=== PATIENT | male | born 1975 | race Caucasian/White ===

== ENCOUNTER 2019-05-19 08:39 | Outpatient (CLI) | payer OTHER, SELFPAY ==
--- NOTE | ~2019-05-19 | US_ITS ---
US abdomen complete EXAMINATION: US Abdomen Complete INDICATION: Epigastric pain PROCEDURE: Realtime High Resolution abdomen ultrasound. COMPARISON: No prior studies for comparison FINDINGS: Gallbladder within normal limits. No gallstones, pericholecystic fluid, gallbladder wall t hickening or biliary dilatation. Common bile duct measures 3 mm. There is a hyperechoic area adjacent to the courtney hepatis measuring 2.5 x 2.5 x 1.3 cm. Pancreas with in normal limits. Pancreatic tail is obscured by bowel gas. Spleen is unremarkeable. Renal echotext ure is within normal limits bilaterally without hydronephrosis, contour deforming mass or renal stone . Right kidney measures 11.8 cm. Left kidney measures 11.9 cm. Visualized aspects of the aorta and IVC are within normal limits. Portal vein is patent. No sonograph ic Anna's sign indicated by the technologist. IMPRESSION: 1: Hyperechoic liver parenchyma adjacent to the courtney hepatis measuring up to 2.5 cm. This most likel y represents focal fatty infiltration or hemangioma in the absence of known malignancy. Reviewed, dictated and finalized at location A. IMPRESSION: 1: Hyperechoic liver parenchyma adjacent to the courtney hepatis measuring up to 2 .5 cm. This most likely represents focal fatty infiltration or hemangioma in th e absence of known malignancy.
== END 2019-05-19 08:40 | disposition home or self-care (01) ==
LOC: CHSIMG 08:42
PROVIDERS: PCP Family Medicine; Visit Provider Family Medicine
DX: R10.13 Epigastric pain (principal)
CPT/HCPCS: 76700

== ENCOUNTER 2019-05-20 07:31 | Outpatient (CLI) | payer OTHER, SELFPAY ==
--- NOTE | ~2019-05-20 | CT_ITS ---
EXAMINATION: CT abdomen pelvis w con DATE: 05/20/2019 08:24 INDICATION: Epigastric pain TECHNIQUE: Computed tomography (CT) of the abdomen and pelvis was performed without intravenous contr ast. Automated exposure control and iterative reconstruction technique were employed. The dose-length product was 1383.78 mGy-cm. COMPARISON: Ultrasound dated 05/19/2019 FINDINGS: Lung bases are clear. Heart size is normal. No pericardial or pleural effusion. Focal hepatic steatos is along the ligamentum teres and courtney hepatis. Gallbladder, spleen, bilateral adrenal glands and ki dneys are normal. There is subtle peripancreatic stranding consistent with acute interstitial pancrea titis. Homogeneous pancreatic parenchymal enhancement with no evident necrosis, hemorrhage or loculat ed peripancreatic fluid collections. A few mildly prominent but still normal-sized peripancreatic and mesenteric lymph nodes which are likely reactive. Calcified appendicolith within the base of the oth erwise normal appendix with no periappendiceal inflammatory stranding to suggest acute appendicitis. Fatty infiltration of the wall of the proximal colon which is likely related to body habitus. No bc l obstruction. Bladder is normal. No free intraperitoneal gas or fluid. No pathologically enlarged ab dominal or pelvic lymphadenopathy. Vasculature appears unremarkable with patent portal, splenic and s uperior mesenteric veins. Mild polyarticular osteoarthritis at multiple lower lumbar predominant face t joints and bilateral hip and sacroiliac joints. IMPRESSION: 1. Radiographically uncomplicated acute interstitial pancreatitis. 2. Likely reactive mild peripancreatic mesenteric lymphadenopathy. 3. Appendicolith within an otherwise normal appendix. Reviewed, dictated and finalized at location A.
[2019-05-20 07:52] LABS: Estimated Glomerular Filt Rate > 60
== END 2019-05-20 07:32 | disposition home or self-care (01) ==
PROVIDERS: PCP Family Medicine; Visit Provider Family Medicine
DX: R10.13 Epigastric pain (principal)
CPT/HCPCS: 74177; Q9965

== ENCOUNTER 2021-11-22 11:06 | Outpatient (CLI) | payer OTHER, SELFPAY ==
--- NOTE | ~2021-11-22 | XR_ITS ---
EXAMINATION: XR chest 2V DATE: 11/22/2021 11:23 INDICATION: Pneumonia. Shortness of breath. TECHNIQUE: Frontal and lateral views of the chest were obtained. COMPARISON: CT abdomen and pelvis 05/20/2019 FINDINGS: There are Alex B-lines, consistent with mild pulmonary edema. No pleural effusion or pneu mothorax. The heart size is normal. IMPRESSION: 1. Mild pulmonary edema. Reviewed, dictated and finalized at location A. IMPRESSION: 1. Mild pulmonary edema.
== END 2021-11-22 11:07 | disposition home or self-care (01) ==
LOC: CHSIMG 11:09
PROVIDERS: PCP Family Medicine; Visit Provider Family Medicine
DX: J18.9 Pneumonia, unspecified organism (principal)
CPT/HCPCS: 71046

== ENCOUNTER 2021-11-24 14:18 | Outpatient (CLI) | payer OTHER, SELFPAY ==
--- NOTE | 2021-11-24 | ECHO_ITS ---
Patient Info Name: Anoop Francis Age: 46 years : 1975 Gender: Male Ht: 72 in Wt: 247 lbs BSA: 2.42 m2 HR: 101 bpm BP: 107 / 86 mmHg Technical Quality: Good Exam Date: 11/24/2021 2:54 PM Exam Location: [facility] Patient Status: Outpatient Admit Date: 11/24/2021 Staff Ordering Physician: Harry Solorzano MD [employer] Out Worker: Humera Lieberman RDCS Attending Provider: Harry Solorzano MD Referring Physician: Rashad GE; Exam Type: CA echo doppler color flow Study Info Indications R94.31 - Abnormal electrocardiogram ECG EKG R00.0 - Tachycardia, unspecified Complete two-dimensional, color flow and Doppler transthoracic echocardiogram is performed. Summary 1. Complete two-dimensional, color flow and Doppler transthoracic echocardiogram is performed. 2. Left ventricular chamber dimension is severely enlarged. 3. Left ventricular systolic function is severely reduced, estimated at 15-20%. 4. The left ventricular diastolic function is abnormal. 5. E/e' 30 is significantly elevated. 6. Right ventricular chamber dimension is mildly enlarged. 7. Right ventricular systolic function is mildly reduced and with abnormal TAPSE 1.5 cm. 8. Left atrial chamber dimension is severely enlarged. 9. Right atrial chamber dimension is moderately enlarged. 10. There is moderate mitral valve regurgitation. 11. There is mild tricuspid valve regurgitation. 12. No pulmonary hypertension, estimated pulmonary arterial systolic pressure is 35 mmHg. 13. Dilated inferior vena cava with >50% collapse upon inspiration consistent with elevated right atrial pressure, 10 mmHg. Left Ventricle E/e' 30 is significantly elevated. Left ventricular chamber dimension is severely enlarged. Left ventricular systolic function is severely reduced, estimated at 15-20%. The left ventricular diastolic function is abnormal. Right Ventricle Right ventricular systolic function is mildly reduced and with abnormal TAPSE 1.5 cm. Right ventricular chamber dimension is mildly enlarged. Left Atria Left atrial chamber dimension is severely enlarged. Right Atria Right atrial chamber dimension is moderately enlarged. Aortic Valve The aortic valve is trileaflet. There is no aortic valve stenosis. There is no aortic valve regurgitation. Pulmonic Valve There is no pulmonic regurgitation. Mitral Valve There is no mitral valve stenosis. There is moderate mitral valve regurgitation. Tricuspid Valve There is mild tricuspid valve regurgitation. No pulmonary hypertension, estimated pulmonary arterial systolic pressure is 35 mmHg. Pericardium/Pleural There is no pericardial effusion. Inferior Vena Cava Dilated inferior vena cava with >50% collapse upon inspiration consistent with elevated right atrial pressure, 10 mmHg. Aorta The aortic root size at the sinus of Valsalva is normal. Left Ventricular Outflow Tract Name Value Normal LVOT 2D LVOT Diameter 2.3 cm LVOT Doppler LVOT Peak Gradient 2 mmHg LVOT Mean Gradient 1 mmHg LVOT VTI
== END 2021-11-24 14:19 | disposition home or self-care (01) ==
PROVIDERS: PCP Family Medicine; Visit Provider Family Medicine
DX: R00.0 Tachycardia, unspecified (principal); R94.31 Abnormal electrocardiogram [ECG] [EKG]; I08.1 Rheumatic disorders of both mitral and tricuspid valves
CPT/HCPCS: 93306

== ENCOUNTER 2021-11-24 17:20 | Observation (INO) | payer OTHER, SELFPAY ==
[2021-11-24] VITALS (18 sets, daily range): BP systolic 121–141; BP diastolic 69–96; PULSE 95–113; RESP 13–28; TEMP 36.4–36.6; O2SAT 97–100; BMI 34.2
--- NOTE | ~2021-11-24 | XR_ITS ---
EXAMINATION: XR chest 2V DATE: 11/24/2021 17:46 INDICATION: Chest pain TECHNIQUE: PA and lateral views of the chest are obtained. COMPARISON: 11/22/2021 FINDINGS: There is persistent but improved mild pulmonary edema. No pleural effusion or pneumothorax. The cardiomediastinal silhouette is normal. The visualized bones and soft tissues are unremarkable. IMPRESSION: 1. Persistent but improved mild pulmonary edema. Reviewed, dictated and finalized at location A.
--- NOTE | 2021-11-24 17:24 | ECG_ITS ---
Measurements Intervals [place] Rate: 102 P: 63 VT: 202 QRS: -41 QRSD: 129 T: 86 QT: 353 QTc: 461 Interpretive Statements SINUS TACHYCARDIA LEFT AXIS DEVIATION BORDERLINE AV CONDUCTION DELAY POSSIBLE RIGHT ATRIAL ENLARGEMENT POSSIBLE LEFT ATRIAL ENLARGEMENT INTRAVENTRICULAR CONDUCTION DELAY DELAYED PRECORDIAL R/S TRANSITION BORDERLINE T WAVE ABNORMALITY- HIGH LATERAL LEADS BORDERLINE ECG NO PREVIOUS ECG AVAILABLE FOR COMPARISON Electronically Signed On 11-24-2021 21:40:27 CDT by Neeraj Beltran D.O.
[2021-11-24 17:56] LABS: INR 1.2; Prothrombin Time 14.9 Seconds (11.1-14.7)
[2021-11-24 18:00] LABS: Alanine Aminotransferase 76 U/L (6-50); Albumin Level 4.2 g/dL (3.5-5.1); Alkaline Phosphatase 75 U/L (38-126); Anion Gap 14 mmol/L (8-16); Aspartate Amino Transferase 50 U/L (17-59); Bilirubin,Total 0.5 mg/dL (0.2-1.3); Blood Urea Nitrogen 15 mg/dL (9-20); Calcium 8.6 mg/dL (8.4-10.2); Carbon Dioxide 23 mmol/L (22-30); Chloride 102 mmol/L (98-107); Estimated Glomerular Filt Rate > 60; Glucose 242 mg/dL (65-110); Lipase 181 U/L (23-300); Potassium 3.6 mmol/L (3.4-5.0); Sodium 139 mmol/L (137-145)
[2021-11-24 18:09] LABS: Troponin I < 0.012 ng/mL (0.000-0.034)
[2021-11-24 18:10] LABS: Basophils Absolute Auto 0.1 K/mm3 (0.0-0.1); Basophils Percent Auto 0.7 % (0.2-1.2); Eosinophils Absolute Auto 0.3 K/mm3 (0-0.3); Eosinophils Percent Auto 2.3 % (0-4.4); Hematocrit 41.5 % (42.0-52.0); Hemoglobin 12.6 g/dL (14.0-18.0); Immature Granulocyte Absolute 0.04 K/mm3 (0.00-0.031); Immature Granulocyte Percent A 0.4 % (0-0.5); Lymphocytes Absolute Auto 1.82 K/mm3 (0.9-3.2); Lymphocytes Percent Auto 16.9 % (18.3-44.2); Mean Corpuscular HGB Conc 30.4 g/dl (32-36); Mean Corpuscular Hemoglobin 25.7 pg (26-34); Mean Corpuscular Volume 84.7 fl (80-100); Mean Platelet Volume 12.8 fl (7.4-10.4); Monocytes Absolute Auto 0.4 K/mm3 (0.1-0.6); Monocytes Percent Auto 3.4 % (2.6-8.5); Neutrophils Absolute Auto 8.2 K/mm3 (1.3-6.7); Neutrophils Percent Auto 76.3 % (45.5-73.1); Platelet Count Result 243 k/mm3 (150-375); Red Cell Distribution Width 14.4 % (11.5-14.5); White Blood Count 10.7 K/mm3 (4.5-10.0)
[2021-11-24 19:43] LABS: NT Pro B Type Natriuretic Pept 1870 pg/mL (5-100)
--- NOTE | 2021-11-24 20:04 | ED.GENADULT ---
HPI - General Adult General Chief complaint: Chest Pain Stated complaint: abnormal echo Time Seen by Provider: 11/24/21 18:57 Source: patient and RN notes reviewed Mode of arrival: ambulatory Limitations: no limitations History of Present Illness HPI narrative: This is a 46 year old male who presents for evaluation of an abnormal ECHO. He developed dyspnea on exertion on October 27. He went for evaluation and he was diagnosed with pneumonia at that time. He states 2 weeks after that evaluation he continued to have shortness of breath. He was told he had more fluid on his lungs on that xray was he had outpatient ECHO and EKG ordered. He has been on lasix 20 mg daily for 3 days. His ECHO today showed he had EF of 15-20%, so he was told to come to ER. He denies cardiac history. He denies chest pain with these symptoms. He denies URI preceding his shortness of breath. Related Data Home Medications Medication Instructions Recorded Confirmed furosemide 20 mg tablet 20 mg PO DAILY 11/24/21 11/24/21 lipase 16,800-protease 2 cap PO 11/24/21 56,800-amylase 98,400 unit capsule, delayed rel (Pancreaze) Allergies Allergy/AdvReac Type Severity Reaction Status Date / Time No Known Allergies Allergy Verified 11/24/21 21:20 Review of Systems Review of Systems: All systems reviewed & are unremarkable except as noted in HPI and below Constitutional: Constitutional: Denies chills, Denies fatigue and Denies fever(s) ENT: Denies nasal congestion and Denies sore throat Cardiovascular: Cardiovascular: Denies chest pain and Denies radiating jaw, neck or arm pain Respiratory: Respiratory: Denies chest congestion, Denies cough and Reports dyspnea Gastrointestinal: Gastrointestinal: Denies abdominal pain and Denies nausea Neurologic: Denies headache(s) PMFSH Past Medical History Medical History (Updated 11/24/21 @ 20:50 by Linsey Campbell MD) Patient denies medical problems Social History Social History (Updated 11/24/21 @ 20:13 by Linsey Campbell MD) Years smoked: 20 Smoking status: Former smoker Tobacco type: cigarettes Alcohol intake: current Drinks per week: 9 Alcohol use details: drinks 2 times a week Substance use: never Spiritual care concerns: No Exam Const: General: alert Nutritional Appearance: well nourished Orientation/consciousness: patient oriented x3 Limitations: no limitations HENMT: Head: normal to inspection Throat: posterior oropharynx normal Eyes: EOM: EOMs intact bilaterally Resp: Effort & Inspection: normal respiratory effort Auscultation: clear to auscultation bilaterally Cardio: Rate: regular rate Rhythm: regular rhythm Heart sounds: no murmurs GI: GI Palp: Yes Soft to palpation, No Tenderness to palpation present (GI), No Guarding due to palpation present (GI) and No Rigid due to palpation Auscultation: normal bowel sounds Skin: General skin exam: normal color Rashes: no rashes Wounds: no wounds Neuro: General: patient oriented x3 and CN's II-XI intact bilaterally Cranial nerves: Yes Nystagmus not present Speech: normal speech Extrem: General: normal to inspection Psych: Mental Status: mental status grossly normal Affect: normal affect Attitude: cooperative Course Reevaluation(s) Reevaluation #1: I Discussed with patient that he will be admitted. I spoke with Dr. Bashir with cardiology about ECHO and presentation . He recommends starting lasix 20 mg bid and coreg 3.[address] Gregory accepts patient to [facility]. Patient is stable at this time Date: 11/24/21 Time: 20:47 Vital Signs Vital signs: Vital Signs Temperature 97.5 F L 11/24/21 17:28 Pulse Rate 113 H 11/24/21 17:28 Respiratory Rate 18 11/24/21 17:28 Blood Pressure 130/95 H 11/24/21 17:28 Pulse Oximetry 98 11/24/21 17:28 Oxygen Delivery Room Air 11/24/21 17:28 Temperature 97.6 F 11/24/21 22:05 Pulse Rate 107 H 11/24/21 22:10
[2021-11-24 20:25] LABS: Amphetamine Screen Urine Negative (Negative); Barbiturate Screen Urine Negative (Negative); Benzodiazepines Screen Urine Negative (Negative); Cannabinoid Screen Urine Negative (Negative); Cocaine Screen Urine Negative (Negative); Methadone Screen Urine Negative (Negative); Opiate Screen Urine Negative (Negative); Phencyclidine Screen Urine Negative (Negative)
[2021-11-24 20:39] LABS: D Dimer 0.34 ug/mL (<0.48)
--- NOTE | 2021-11-24 20:52 | PM.IMHP ---
H&P: HPI History of Present Illness Date/Time: 11/24/21 20:52 Chief Complaint: Abnormal echocardiogram Narrative: 46-year-old male with no known past medical history who presented to the ER after outpatient echocardiogram demonstrated new onset heart failure. Patient to symptoms began October 27 with dyspnea on exertion. He was evaluated by an outside provider had chest x-ray and was treated for pneumonia with to 10 days of antibiotics. He initially thought his symptoms improved but few days later dyspnea again worsened. He went to his primary care physician on the and had a chest x-ray performed which demonstrated pulmonary edema. Patient was started on Lasix and an outpatient echocardiogram was ordered. Echocardiogram was performed today which demonstrated severe left ventricular enlargement, severely reduced left ventricular systolic function with EF of 15-20%, abnormal diastolic function, significantly elevated E/E 30, mild right ventricular enlargement with mild right ventricular systolic dysfunction, severe left atrial enlargement moderate right atrial enlargement with moderate mitral valve regurgitation and elevated right atrial pressures. Patient was directed to come to the ER for further evaluation. In the ER repeat chest x-ray demonstrated persistent but improved mild pulmonary edema and patient BMP was elevated to 1870. Incidental findings of a glucose of 242 but patient denies history of diabetes. He did eat a large meal just prior to coming to the ER. The patient reports that up until the last week of September he was feeling his usual health. In fact in July he had went to [place] and did some hiking and never had any shortness of breath. His who is doing the same activities became quite winded. Last began September he began having dyspnea on exertion that is progressively worsened to the point that he is not doing his usual activity at work. 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 He denies any orthopnea or paroxysmal nocturnal dyspnea. He has not noticed any significant weight gain or lower extremity swelling. He denies any chest pain or palpitations. He has not had any recent fevers chills or signs of viral infection. He does drink alcohol a bit to his excess drinking 6 alcoholic beverages 2 to 3 times a week. He denies any illicit substance use. His sister does have a history of cardiomyopathy but he has no other family history of heart disease or heart failure. His shortness of breath is occasionally associated with some dizziness. Review of Systems Review of Systems: 12 systems were reviewed with pertinent positives and negatives per HPI. Except as documented in the HPI, all other systems were reviewed and are negative. [facility] Past Medical History Medical History (Updated 11/25/21 @ 00:22 by Risa Gregory DO) COVID-19 (01/2020) Exocrine pancreatic insufficiency Pancreatitis (~2019) Surgical History Surgical History (Updated 11/25/21 @ 00:22 by Risa Gregory DO) History of vasectomy Family History Family History (Updated 11/25/21 @ 00:23 by Risa Gregory DO) Sibling cardiomyopathy, Onset Age: 30 Father Diabetes mellitus Mother Bipolar disorder Social History Social History (Updated 11/25/21 @ 01:06 by Risa Gregory DO) Social History: Code status: Full code Surrogate decision maker: Smoking packs per day: 1 Smoking cigarettes per day: 20.0 Years smoked: 20 Smoking pack-years: 20.00 Smoking status: Former smoker Tobacco type: cigarettes Alcohol intake: current Drinks per week: 9 Alcohol use details: The patient drinks up to 6 alcoholic beverages 2 to 3 times a week. Substance use: never Additional living arrangements comments: He lives at home with his and children. Additional occu
[2021-11-24 21:08] LABS: Troponin I 0.013 ng/mL (0.000-0.034)
[2021-11-24] MEDS: FUROSEMIDE INJ 40 MG/4 ML VIAL 20 MG IV PUSH (22:09)
[2021-11-24] MEDS: carvediloL 3.125 MG TABLET PO (22:10)
--- NOTE | 2021-11-24 22:18 | ADMGEN ---
This patient, Anoop Francis, was admitted to [facility] Surg Room 301-01, at 22:05. Patient/family oriented to hospital policies and general routines including ID bracelet, bed and alarms, visiting hours, pain management, procedures, bathroom and other care routines, personal items, smoking policy, room service/diet, and visiting hours. Information on how to activate the Rapid Response Team has been discussed. Patient/Family are encouraged to report perceived risks to care and to ask questions if they do not understand what they are told or what they should do.
[2021-11-24 23:07] LABS: Hemoglobin A1C 5.7 % (<5.7)
[2021-11-25] VITALS (12 sets, daily range): BP systolic 112–117; BP diastolic 72–88; PULSE 83–105; RESP 18–20; TEMP 36.1–36.4; O2SAT 99–100
[2021-11-25 00:02] LABS: Troponin I < 0.012 ng/mL (0.000-0.034)
[2021-11-25 06:26] LABS: Anion Gap 12 mmol/L (8-16); Blood Urea Nitrogen 14 mg/dL (9-20); Calcium 8.6 mg/dL (8.4-10.2); Carbon Dioxide 25 mmol/L (22-30); Chloride 101 mmol/L (98-107); Cholesterol 107 mg/dL (0-200); Estimated CRCL calculation 108 ml/min; Estimated Glomerular Filt Rate > 60; Glucose 104 mg/dL (65-110); HDL Direct 34 mg/dL; Potassium 3.6 mmol/L (3.4-5.0); Sodium 138 mmol/L (137-145); Triglycerides 59 mg/dL (<150)
[2021-11-25 06:37] LABS: LDL Cholesterol Direct 67 mg/dL
[2021-11-25] MEDS: carvediloL 3.125 MG TABLET PO ×2 (08:24→20:57)
[2021-11-25] MEDS: ENOXAPARIN 40 MG/0.4 ML SYRINGE SUB-Q (08:24)
[2021-11-25] MEDS: FUROSEMIDE INJ 40 MG/4 ML VIAL 20 MG IV PUSH (08:25)
--- NOTE | 2021-11-25 09:32 | PM.IMPN ---
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: Code(s): I50.40 - Unspecified combined systolic (congestive) and diastolic (congestive) heart failure Status: Acute Assessment and Plan: appears euvolemic (3) Right heart failure: Code(s): I50.810 - Right heart failure, unspecified Status: Acute Assessment and Plan: 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 (4) Hyperglycemia: Code(s): R73.9 - Hyperglycemia, unspecified Status: Acute Assessment and Plan: A1c 5.7, hyperglycemia resolved today, no need for further monitoring at this time (5) Exocrine pancreatic insufficiency: Code(s): K86.81 - Exocrine pancreatic insufficiency Status: Acute Assessment and Plan: Creon with meals (6) Leukocytosis: Code(s): D72.829 - Elevated white blood cell count, unspecified Status: Acute Assessment and Plan: Likely reactive, monitor Plan DVT prophylaxis with Lovenox GI prophylaxis not indicated Code status full code Subjective Date/time seen: 11/25/21 09:32 Interval history: No overnight events noted. No chest pain or shortness of breath. No nausea, vomiting or diarrhea. No fevers or chills. Review of Systems Review of Systems: 12 point review of systems was assessed and was negative except as noted in the HPI Exam Narrative: General: No acute distress, alert and oriented per baseline HEENT: Atraumatic, normocephalic, mucous membranes moist CV: Regular rate and rhythm, S1, S2 Lungs: Clear to auscultation bilaterally, no rales or crackles noted, no wheezes, good air entry Abdomen: Soft, nontender, nondistended Extremities: Normal to inspection Skin: No rashes noted, no lesions or wounds seen Psych: Euthymic, normal affect Objective Data Vital Signs Vital Signs: Vital Signs - 24 hr 11/24/21 17:28 11/24/21 18:06 11/24/21 18:07 Temperature 97.5 F L Pulse Rate 113 H 103 H Respiratory Rate 18 13 Blood Pressure 130/95 H 137/81 Pulse Oximetry 98 98 98 Oxygen Delivery Room Air Room Air 11/24/21 18:12 11/24/21 18:07 11/24/21 18:16 Temperature Pulse Rate 103 H 101 H Respiratory Rate 14 18 Blood Pressure 137/81 129/83 Pulse Oximetry 98 98 Oxygen Delivery Room Air 11/24/21 18:31 11/24/21 18:46 11/24/21 19:01 Temperature Pulse Rate 99 96 99 Respiratory Rate 16 23 H 22 H Blood Pressure 131/69 121/76 125/75 Pulse Oximetry 100 98 99 Oxygen Delivery 11/24/21 19:16 11/24/21 19:31 11/24/21 20:00 Temperature Pulse Rate 98 100 Respiratory Rate 15 28 H Blood Pressure 130/90 141/95 H Pulse Oximetry 98 98 Oxygen Delivery 11/24/21 20:15 11/24/21 20:30 11/24/21 21:01 Temperature Pulse Rate 96 95 106 H Respiratory Rate 18 18 25 H Blood Pressure Pulse Oximetry 97 98 98 Oxygen Delivery 11/24/21 21:15 11/24/21 21:21 11/24/21 22:10 Temperature 97.9 F Pulse Rate 103 H 102 H 107 H Respiratory Rate 16 24 H Blood Pressure 123/92 H 123/92 H Pulse Oximetry 97 98 Oxygen Delivery 11/24/21 22:05 11/24/21 22:10 11/25/21 00:00 Temperature 97.6 F Pulse Rate 108 H 96 Respiratory Rate 22 H Blood Pressure 125/96 H Pulse Oximetry 99 Oxygen Delivery Room Air 11/25/21 04:00 11/25/21 05:10 11/25/21 08:24 Temperature 97 F L Pulse Rate 83 97 90 Respiratory Rate 20 Blood Pressure 115/72 Pulse Oximetry 100 Oxygen Delivery 11/25/21 08:00 Temperature Pulse Rate 87 Respiratory Rate Blood Pressure Pulse Oximetry Oxygen Delivery Intake/Output Intake/Output: Intake & Output 11/22/21 11/23/21 11/24/21
[2021-11-25 09:54] LABS: Basophils Absolute Auto 0.1 K/mm3 (0.0-0.1); Basophils Percent Auto 0.6 % (0.2-1.2); Eosinophils Absolute Auto 0.2 K/mm3 (0-0.3); Eosinophils Percent Auto 2.5 % (0-4.4); Hematocrit 41.8 % (42.0-52.0); Hemoglobin 12.7 g/dL (14.0-18.0); Immature Granulocyte Absolute 0.03 K/mm3 (0.00-0.031); Immature Granulocyte Percent A 0.3 % (0-0.5); Lymphocytes Absolute Auto 3.02 K/mm3 (0.9-3.2); Lymphocytes Percent Auto 31.3 % (18.3-44.2); Mean Corpuscular HGB Conc 30.4 g/dl (32-36); Mean Corpuscular Hemoglobin 25.9 pg (26-34); Mean Corpuscular Volume 85.1 fl (80-100); Mean Platelet Volume 12.6 fl (7.4-10.4); Monocytes Absolute Auto 0.5 K/mm3 (0.1-0.6); Monocytes Percent Auto 5.6 % (2.6-8.5); Neutrophils Absolute Auto 5.8 K/mm3 (1.3-6.7); Neutrophils Percent Auto 59.7 % (45.5-73.1); Platelet Count Result 239 k/mm3 (150-375); Red Blood Count 4.91 M/mm3 (4.6-6.20); Red Cell Distribution Width 14.6 % (11.5-14.5); White Blood Count 9.7 K/mm3 (4.5-10.0)
[2021-11-25 10:19] LABS: Alanine Aminotransferase 73 U/L (6-50); Albumin Level 4.1 g/dL (3.5-5.1); Alkaline Phosphatase 74 U/L (38-126); Anion Gap 11 mmol/L (8-16); Aspartate Amino Transferase 44 U/L (17-59); Bilirubin,Total 0.6 mg/dL (0.2-1.3); Blood Urea Nitrogen 15 mg/dL (9-20); Calcium 8.7 mg/dL (8.4-10.2); Carbon Dioxide 24 mmol/L (22-30); Chloride 102 mmol/L (98-107); Estimated CRCL calculation 108 ml/min; Estimated Glomerular Filt Rate > 60; Glucose 105 mg/dL (65-110); Magnesium 1.9 mg/dL (1.6-2.3); Potassium 3.6 mmol/L (3.4-5.0); Sodium 137 mmol/L (137-145)
[2021-11-25] MEDS: LIPASE/AMYLASE/PROTEASE 12,000 UNITS CAP 3 CAP PO ×2 (11:37→17:12)
[2021-11-25] MEDS: SPIRONOLACTONE 12.5 MG TABLET PO (13:45)
[2021-11-25] MEDS: EMPAGLIFLOZIN 10 MG TABLET PO (13:46)
--- NOTE | 2021-11-25 16:17 | PM.CNCAR ---
Assessment and Plan Assessment and plan (1) Cardiomyopathy: Code(s): I42.9 - Cardiomyopathy, unspecified Status: Acute Plan Patient currently appears to be euvolemic on exam. Would transition IV lasix to oral lasix. Start GDMT -- will start low-dose Entresto, Coreg, Jardiance, and Aldactone. Monitor vital signs to see how patient's blood pressure tolerates these medications. Patient will need an ischemic evaluation with cardiac cath at some point. Patient denies any chest pain and has no s/s of ACS. Can obtain cardiac cath as an outpatient. Will need close outpatient follow-up with Cardiology Clinic. History of Present Illness History of Present Illness Consult date/time: 11/25/21 16:17 Requesting physician: Linsey Campbell MD Consult reason: congestive heart failure Reason For Visit: Cardiomyopathy, TURK Narrative: Patient is a 46-year-old male with no prior medical history who was instructed to come to the ED for abnormal echocardiogram results. Echocardiogram showed new diagnosis of heart failure with reduced ejection fraction. Patient reports that he developed exertional shortness of breath at the beginning of October. No history of chest pain or other cardiac symptoms. On ED evaluation, CXR showed mild pulmonary edema, elevated BNP of 1870. Troponins negative x 3. Patient admitted for diuresis, and patient reports improvement in his symptoms since getting IV diuresis (got Lasix 20mg IV BID). Patient denies any history of recent viral infection, no chest pain, no recreational drug use. Does drink 4-6 glasses of alcohol couple times a week. Patient reports that both his mother and sister have heart failure as well. Review of Systems Review of Systems: All systems reviewed & are unremarkable except as noted in HPI and below (HPI) [facility] Past Medical History Medical History COVID-19 (01/2020) Exocrine pancreatic insufficiency Pancreatitis (~2019) Surgical History Surgical History History of vasectomy Family History Family History Sibling cardiomyopathy, Onset Age: 30 Father Diabetes mellitus Mother Bipolar disorder Social History Social History Social History: Code status: Full code Surrogate decision maker: Smoking packs per day: 1 Smoking cigarettes per day: 20.0 Years smoked: 20 Smoking pack-years: 20.00 Smoking status: Former smoker Tobacco type: cigarettes Alcohol intake: current Drinks per week: 9 Alcohol use details: The patient drinks up to 6 alcoholic beverages 2 to 3 times a week. Substance use: never Additional living arrangements comments: He lives at home with his and children. 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 Spiritual care concerns: No Meds Home Medications and Allergies Home Medications Medication Instructions Recorded Confirmed Type furosemide 20 mg tablet 20 mg PO DAILY 11/24/21 11/24/21 History lipase 16,800-protease 2 cap PO AC 11/24/21 11/24/21 History 56,800-amylase 98,400 unit capsule, delayed rel (Pancreaze) Allergies Allergy/AdvReac Type Severity Reaction Status Date / Time No Known Allergies Allergy Verified 11/24/21 21:20 Vital Signs Vital Signs - 24 hr 11/24/21 17:28 11/24/21 18:06 11/24/21 18:07 Temperature 36.4 C L Pulse Rate 113 H 103 H Respiratory Rate 18 13 Blood Pressure 130/95 H 137/81 Pulse Oximetry 98 98 98 Oxygen Delivery Room Air Room Air 11/24/21 18:12 11/24/21 18:07 11/24/21 18:16 Temperature Pulse Rate 103 H 101 H Respiratory Rate 14 18 Blood Pressure 137/81 129/83 Pulse Oximetry 98 98 Oxygen Delivery Room Air 11/24/21 18:31 11/24/21 18:46 11/24/21 19:01 Temperature Pulse Rate
[2021-11-25] MEDS: SACUBITRIL/VALSARTAN 24-26 MG TABLET 1 TAB PO (20:57)
[2021-11-26] VITALS (8 sets, daily range): BP systolic 98–106; BP diastolic 63–71; PULSE 76–94; RESP 16–18; TEMP 36.1–36.4; O2SAT 96–99
[2021-11-26 05:56] LABS: Basophils Absolute Auto 0.1 K/mm3 (0.0-0.1); Basophils Percent Auto 0.8 % (0.2-1.2); Eosinophils Absolute Auto 0.3 K/mm3 (0-0.3); Eosinophils Percent Auto 2.8 % (0-4.4); Hematocrit 44.1 % (42.0-52.0); Hemoglobin 13.3 g/dL (14.0-18.0); Immature Granulocyte Absolute 0.03 K/mm3 (0.00-0.031); Immature Granulocyte Percent A 0.3 % (0-0.5); Lymphocytes Absolute Auto 3.12 K/mm3 (0.9-3.2); Lymphocytes Percent Auto 35.1 % (18.3-44.2); Mean Corpuscular HGB Conc 30.2 g/dl (32-36); Mean Corpuscular Hemoglobin 25.7 pg (26-34); Mean Corpuscular Volume 85.3 fl (80-100); Mean Platelet Volume 12.1 fl (7.4-10.4); Monocytes Absolute Auto 0.7 K/mm3 (0.1-0.6); Monocytes Percent Auto 7.4 % (2.6-8.5); Neutrophils Absolute Auto 4.8 K/mm3 (1.3-6.7); Neutrophils Percent Auto 53.6 % (45.5-73.1); Platelet Count Result 253 k/mm3 (150-375); Red Blood Count 5.17 M/mm3 (4.6-6.20); Red Cell Distribution Width 14.4 % (11.5-14.5); White Blood Count 8.9 K/mm3 (4.5-10.0)
[2021-11-26 06:02] LABS: Alanine Aminotransferase 61 U/L (6-50); Albumin Level 4.2 g/dL (3.5-5.1); Alkaline Phosphatase 72 U/L (38-126); Anion Gap 8 mmol/L (8-16); Aspartate Amino Transferase 37 U/L (17-59); Bilirubin,Total 0.7 mg/dL (0.2-1.3); Blood Urea Nitrogen 14 mg/dL (9-20); Calcium 8.6 mg/dL (8.4-10.2); Carbon Dioxide 27 mmol/L (22-30); Chloride 103 mmol/L (98-107); Estimated CRCL calculation 98 ml/min; Estimated Glomerular Filt Rate > 60; Glucose 100 mg/dL (65-110); Potassium 3.4 mmol/L (3.4-5.0); Sodium 138 mmol/L (137-145)
[2021-11-26] MEDS: SPIRONOLACTONE 12.5 MG TABLET PO (08:16)
[2021-11-26] MEDS: EMPAGLIFLOZIN 10 MG TABLET PO (08:16)
[2021-11-26] MEDS: SACUBITRIL/VALSARTAN 24-26 MG TABLET 1 TAB PO (08:16)
[2021-11-26] MEDS: ENOXAPARIN 40 MG/0.4 ML SYRINGE SUB-Q (08:16)
[2021-11-26] MEDS: LIPASE/AMYLASE/PROTEASE 12,000 UNITS CAP 3 CAP PO ×2 (08:16→11:26)
[2021-11-26] MEDS: carvediloL 3.125 MG TABLET PO (08:17)
[2021-11-26] MEDS: FUROSEMIDE 40 MG TABLET PO (08:18)
--- NOTE | 2021-11-26 10:10 | PM.PNCARD ---
Progress Note: A&P Assessment and Plan (1) Cardiomyopathy: Code(s): I42.9 - Cardiomyopathy, unspecified Status: Acute (2) Heart failure with reduced ejection fraction: Code(s): I50.20 - Unspecified systolic (congestive) heart failure Status: Acute Plan Patient doing well this morning and has tolerated his GDMT. Discussed with patient about doing cardiac cath for ischemic evaluation. He would like to pursue cardiac cath as an outpatient. Will get him scheduled for cath to be done here at [place]. Okay for discharge today. Patient to continue these meds upon discharge: Lasix, Entresto, Coreg, Jardiance, and Aldactone. Will set up patient with clinic appointment to see us in clinic here at our [place] office. Will plan to uptitrate these meds on an outpatient basis. Subjective Date/time seen: 11/26/21 10:10 Interval history: Patient doing well this morning. Has no cardiac symptoms. Able to walk around room without any shortness of breath. Tolerating GDMT well without issue. Review of Systems Review of Systems: All systems reviewed & are unremarkable except as noted in HPI and below (subjective) Exam Const: General: comfortable and no acute distress Neck: Neck: no JVD Resp: Effort & Inspection: normal respiratory effort Auscultation: clear to auscultation bilaterally and no crackles Cardio: Rate: regular rate Rhythm: regular rhythm Heart sounds: no murmurs GI: GI Palp: Yes Soft to palpation and No Tenderness to palpation present (GI) Skin: General skin exam: normal color Neuro: Speech: normal speech Extrem: General: no edema Psych: Mental Status: mental status grossly normal Objective Data Vital Signs Vital Signs: Vital Signs - 24 hr 11/25/21 11:25 11/25/21 12:00 11/25/21 14:00 Temperature 36.4 C L Pulse Rate 96 95 Respiratory Rate 20 Blood Pressure 112/77 Pulse Oximetry 100 100 Oxygen Delivery Room Air 11/25/21 16:00 11/25/21 20:30 11/25/21 20:57 Temperature 36.4 C Pulse Rate 94 100 100 Respiratory Rate 18 Blood Pressure 117/88 Pulse Oximetry 99 Oxygen Delivery 11/25/21 20:00 11/25/21 20:00 11/26/21 00:00 Temperature Pulse Rate 105 H 86 Respiratory Rate Blood Pressure Pulse Oximetry Oxygen Delivery Room Air 11/26/21 03:21 11/26/21 04:00 11/26/21 08:17 Temperature 36.4 C Pulse Rate 78 76 94 Respiratory Rate 18 Blood Pressure 98/63 L Pulse Oximetry 96 Oxygen Delivery 11/26/21 08:00 11/26/21 08:00 Temperature Pulse Rate 94 91 Respiratory Rate 18 Blood Pressure Pulse Oximetry 96 Oxygen Delivery Room Air Intake/Output Intake/Output: Intake & Output 11/23/21 11/24/21 11/25/21 11/26/21 23:59 23:59 23:59 23:59 Intake Total 1850 390 Output Total 1000 2900 600 Balance -1000 -1050 -210 Meds/Results Medications: Active Medications Generic Name Dose Route Start Last Admin Trade Name Dereckq PRN Reason Stop Dose Admin Lipase/Protease/Amylase 3 cap 11/25/21 12:00 11/26/21 08:16 Lipase/Amylase/Protease 12,000 Units Cap PO 3 cap TIDWM JAQUI Administration Carvedilol 3.125 mg 11/24/21 21:00 11/26/21 08:17 Carvedilol 3.125 Mg Tablet PO 3.125 mg Q12HR JAQUI Administration Empagliflozin 10 mg 11/25/21 13:10 11/26/21 08:16 Empagliflozin 10 Mg Tablet PO 10 mg DAILY JAQUI Administration Enoxaparin Sodium 40 mg 11/25/21 09:00 11/26/21 08:16 Enoxaparin 40 Mg/0.4 Ml Syringe SUB-Q 40 mg DAILY JAQUI Administration Furosemide 40 mg 11/26/21 09:00 11/26/21 08:18 Furosemide 40 Mg Tablet PO 40 mg DAILY JAQUI Administration Sacubitril/Valsartan 1 tab 11/25/21 21:00 11/26/21 08:16 Sacubitril/Valsartan 24-26 Mg Tablet PO 1 tab Q12HR JAQUI Administration Spironolactone 12.5 mg 11/25/21 13:15 11/26/21 08:16 Spironolactone 12.5 Mg Tablet PO 12.5 mg QAM JAQUI Administration Radiology Results: ITS Impressions Chest
--- NOTE | 2021-11-26 13:58 | PM.DS ---
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: Code(s): I50.40 - Unspecified combined systolic (congestive) and diastolic (congestive) heart failure Status: Acute Assessment and Plan: appears euvolemic (3) Right heart failure: Code(s): I50.810 - Right heart failure, unspecified Status: Acute Assessment and Plan: 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 (4) Hyperglycemia: Code(s): R73.9 - Hyperglycemia, unspecified Status: Acute Assessment and Plan: A1c 5.7, hyperglycemia resolved today, no need for further monitoring at this time (5) Exocrine pancreatic insufficiency: Code(s): K86.81 - Exocrine pancreatic insufficiency Status: Acute Assessment and Plan: Creon with meals (6) Leukocytosis: Code(s): D72.829 - Elevated white blood cell count, unspecified Status: Acute Assessment and Plan: Likely reactive, monitor Plan DVT prophylaxis with Lovenox GI prophylaxis not indicated Code status full code DS: Summary Hospital Course Hospital Course: 46-year-old male with no known past medical history who presented to the ER after outpatient echocardiogram demonstrated new onset heart failure.? Patient to symptoms began October 27 with dyspnea on exertion.? He was evaluated by an outside provider had chest x-ray and was treated for pneumonia with to 10 days of antibiotics.? He initially thought his symptoms improved but few days later dyspnea again worsened.? He went to his primary care physician on the and had a chest x-ray performed which demonstrated pulmonary edema.? Patient was started on Lasix and an outpatient echocardiogram was ordered.? Echocardiogram was performed today which demonstrated severe left ventricular enlargement, severely reduced left ventricular systolic function with EF of 15-20%, abnormal diastolic function, significantly elevated E/E 30, mild right ventricular enlargement with mild right ventricular systolic dysfunction, severe left atrial enlargement moderate right atrial enlargement with moderate mitral valve regurgitation and elevated right atrial pressures.? Patient was directed to come to the ER for further evaluation.? In the ER repeat chest x-ray demonstrated persistent but improved mild pulmonary edema and patient BMP was elevated to 1870.? Incidental findings of a glucose of 242 but patient denies history of diabetes.? He did eat a large meal just prior to coming to the ER. The patient reports that up until the last week of September he was feeling his usual health.? In fact in July he had went to [place] and did some hiking and never had any shortness of breath.? His who is doing the same activities became quite winded.? Last september he began having dyspnea on exertion that is progressively worsened to the point that he is not doing his usual activity at work.? 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 He denies any orthopnea or paroxysmal nocturnal dyspnea.? He has not noticed any significant weight gain or lower extremity swelling.? He denies any chest pain or palpitations.? He has not had any recent fevers chills or signs of viral infection.? He does drink alcohol a bit to his excess drinking 6 alcoholic beverages 2 to 3 times a week.? He denies any illicit substance use.? His sister does have a history of cardiomyopathy but he has no other family history of heart dis
[2021-11-26 17:08] LABS: Glucose Point of Care 129 mg/dl (65-105)
== END 2021-11-26 16:25 | disposition home or self-care (01) ==
LOC: ANHED 20:50 → ANH3MEDSUR 21:41
PROVIDERS: Emergency Medicine; Admitting Provider Internal Medicine; Emergency Provider General Practice; PCP Family Medicine; Visit Provider Student in an Organized Health Care Education/Training Program
DX: I42.9 Cardiomyopathy, unspecified (principal); I11.0 Hypertensive heart disease with heart failure; I50.40 Unspecified combined systolic (congestive) and diastolic (congestive) heart failure; I50.810 Right heart failure, unspecified; R73.9 Hyperglycemia, unspecified; K86.81 Exocrine pancreatic insufficiency; D72.829 Elevated white blood cell count, unspecified; J81.1 Chronic pulmonary edema; Z86.16 Personal history of COVID-19; I45.4 Nonspecific intraventricular block; J81.0 Acute pulmonary edema; R94.31 Abnormal electrocardiogram [ECG] [EKG]; Z87.01 Personal history of pneumonia (recurrent); R93.1 Abnormal findings on diagnostic imaging of heart and coronary circulation; Z87.891 Personal history of nicotine dependence; Z72.89 Other problems related to lifestyle; Z79.899 Other long term (current) drug therapy; Z82.49 Family history of ischemic heart disease and other diseases of the circulatory system
CPT/HCPCS: 36415; 71046; 80048; 80053; 80061; 80307; 82948; 83036; 83690; 83735; 83880; 84484; 85025; 85380; 85610; 85730; 93005; 93306; 96372; 96374; 99285; A9270; G0378; J1650; J1940

== ENCOUNTER 2021-11-26 17:07 | Observation (INO) | payer OTHER, SELFPAY ==
[2021-11-26] VITALS (8 sets, daily range): BP systolic 99–120; BP diastolic 70–104; PULSE 78–91; RESP 18–19; TEMP 36.2–37; O2SAT 97–100; BMI 33.6
--- NOTE | ~2021-11-26 | XR_ITS ---
EXAMINATION: XR chest 1V portable DATE: 11/27/2021 12:10 INDICATION: Shortness of breath. TECHNIQUE: A single frontal view of the chest was obtained on 2 radiographs. COMPARISON: Chest 2 views 11/24/2021, CT abdomen and pelvis 05/20/2019 FINDINGS: The chest demonstrates clear lungs without pneumonia, pleural effusion, or pneumothorax. Th e heart size is normal. IMPRESSION: 1. No acute cardiopulmonary disease. Reviewed, dictated and finalized at location B.
--- NOTE | 2021-11-26 17:15 | ECG_ITS ---
Measurements Intervals [place] Rate: 81 P: 50 PA: 198 QRS: 13 QRSD: 116 T: 66 QT: 417 QTc: 487 Interpretive Statements SINUS RHYTHM LEFT ATRIAL ENLARGEMENT [-0.15mV P-WAVE IN V1/V2] MODERATE INTRAVENTRICULAR CONDUCTION DELAY [105+ ms QRS DURATION, 80+ ms Q/S IN V1/V2, NO Q AND 60+ ms R IN I/aVL/V5/V6] COMPARED TO ECG 11/24/2021 17:34:29 NO SIGNIFICANT CHANGE Electronically Signed On 11-27-2021 14:36:55 CDT by Stephen Nur M.D.
[2021-11-26 17:23] LABS: Basophils Absolute Auto 0.1 K/mm3 (0.0-0.1); Basophils Percent Auto 0.7 % (0.2-1.2); Eosinophils Absolute Auto 0.3 K/mm3 (0-0.3); Eosinophils Percent Auto 2.4 % (0-4.4); Hematocrit 46.5 % (42.0-52.0); Hemoglobin 14.4 g/dL (14.0-18.0); Immature Granulocyte Absolute 0.03 K/mm3 (0.00-0.031); Immature Granulocyte Percent A 0.3 % (0-0.5); Lymphocytes Absolute Auto 2.85 K/mm3 (0.9-3.2); Lymphocytes Percent Auto 25.5 % (18.3-44.2); Mean Corpuscular Hemoglobin 25.5 pg (26-34); Mean Corpuscular Volume 82.4 fl (80-100); Monocytes Absolute Auto 0.8 K/mm3 (0.1-0.6); Monocytes Percent Auto 7.1 % (2.6-8.5); Neutrophils Absolute Auto 7.2 K/mm3 (1.3-6.7); Platelet Count Result 312 k/mm3 (150-375); Red Blood Count 5.64 M/mm3 (4.6-6.20); Red Cell Distribution Width 14.3 % (11.5-14.5); White Blood Count 11.2 K/mm3 (4.5-10.0)
[2021-11-26 17:32] LABS: Alanine Aminotransferase 61 U/L (6-50); Albumin Level 4.6 g/dL (3.5-5.1); Alkaline Phosphatase 81 U/L (38-126); Anion Gap 12 mmol/L (8-16); Aspartate Amino Transferase 39 U/L (17-59); Bilirubin,Total 0.7 mg/dL (0.2-1.3); Blood Urea Nitrogen 16 mg/dL (9-20); Calcium 8.6 mg/dL (8.4-10.2); Carbon Dioxide 23 mmol/L (22-30); Chloride 101 mmol/L (98-107); Estimated CRCL calculation 107 ml/min; Estimated Glomerular Filt Rate > 60; Glucose 140 mg/dL (65-110); Potassium 3.7 mmol/L (3.4-5.0); Sodium 136 mmol/L (137-145)
[2021-11-26 17:33] LABS: INR 1.2; Partial Thromboplastin Time 26.2 SECONDS (22.3-36.8); Prothrombin Time 14.5 Seconds (11.1-14.7)
[2021-11-26 17:41] LABS: NT Pro B Type Natriuretic Pept 936 pg/mL (5-100)
[2021-11-26 17:44] LABS: Troponin I < 0.012 ng/mL (0.000-0.034)
--- NOTE | 2021-11-26 18:23 | ED.SYNCOPE ---
HPI - Syncope General Chief Complaint: Syncope Stated Complaint: SOB, dizzy Time Seen by Provider: 11/26/21 17:12 History of Present Illness HPI narrative: Patient is a 46-year-old male who presents ER after being a rapid response upstairs. Patient was discharged today from the hospital. He was being evaluated for cardiomyopathy with an ejection fraction of 15 to 20%. He has been struggling with dyspnea on exertion. He was started on carvedilol, Lasix, Entresto, Jardiance, and Aldactone. He went picking supervisor his medications in the pharmacy but they were closed so he came back to talk to someone about switching pharmacy. After arriving upstairs he became very hot and flushed and lightheaded. He had no loss of consciousness. No chest pain or chest pressure. Does not recall feeling any palpitations. He does not have a LifeVest. There is discussion about performing cardiac catheterization and cardiology and the patient had decided to try to perform an outpatient. Related Data Allergies Allergy/AdvReac Type Severity Reaction Status Date / Time No Known Allergies Allergy Verified 11/24/21 21:20 Review of Systems Review of Systems: All systems reviewed & are unremarkable except as noted in HPI and below Constitutional: Constitutional: Denies chills, Denies fever(s) and Reports weakness ENT: Denies nasal congestion and Denies sore throat Cardiovascular: Cardiovascular: Denies chest pain, Denies rapid heart rate and Denies radiating jaw, neck or arm pain Respiratory: Respiratory: Denies cough, Denies dyspnea and Denies wheezing Gastrointestinal: Gastrointestinal: Denies abdominal pain, Denies nausea and Denies vomiting Neurologic: Reports dizziness, Denies syncope, Denies headache(s) and Denies focal weakness PMFSH Past Medical History Medical History (Updated 11/26/21 @ 19:01 by Raphael Dixon MD) COVID-19 (01/2020) Exocrine pancreatic insufficiency Heart failure with reduced ejection fraction Pancreatitis (~2019) Surgical History Surgical History History of vasectomy Family History Family History Sibling cardiomyopathy, Onset Age: 30 Father Diabetes mellitus Mother Bipolar disorder Social History Social History Social History: Code status: Full code Surrogate decision maker: Smoking packs per day: 1 Smoking cigarettes per day: 20.0 Years smoked: 20 Smoking pack-years: 20.00 Smoking status: Former smoker Tobacco type: cigarettes Alcohol intake: current Drinks per week: 9 Alcohol use details: The patient drinks up to 6 alcoholic beverages 2 to 3 times a week. Substance use: never Additional living arrangements comments: He lives at home with his and children. 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 Spiritual care concerns: No Exam Narrative: GENERAL: Well-appearing, well-nourished, and in no acute distress. HEAD: Normocephalic, atraumatic. EYES: PERRL and EOMI. ENT: Mucous membranes moist. CHEST: Clear to auscultation. No respiratory distress. HEART: Regular rate and rhythm. Normal peripheral pulses. ABDOMEN: Soft, nontender, nondistended. EXTREMITIES: Normal range of motion. No edema. SKIN: Warm, dry, no rash. NEURO: Alert and oriented x3. PSYCH: Normal mood and affect. Course Course Emergency Course: Patient still feeling slightly flushed. No arrhythmia. Discussed case with cardiology they are happy to see the patient again. Admit to hospitalist service. Suspect patient likely needs an earlier cath. May benefit from LifeVest as well. Vital Signs Vital signs: Vital Signs Temperature 98.6 F 11/26/21 17:19 Pulse Rate 82 11/26/21 17:19 Respiratory Rate 18 11/26/21 17:19 Blood Pressure 120/104 H 11/26/21 17:19 Pulse Oximetry 1
--- NOTE | 2021-11-26 19:08 | PM.IMHP ---
H&P: HPI History of Present Illness Date/Time: 11/26/21 19:08 Chief Complaint: Syncope Narrative: This is a 46-year-old male patient who had been discharged today. Your was called after the patient had a syncopal episode on 3rd floor. The patient was being evaluated for cardiomyopathy and has an ejection fraction of 15-20%. The patient has been started on multiple new medications while in the hospital. The medications include Coreg, Lasix, Entresto, Jardiance, and Aldactone. The patient had actually left the hospital when he was discharged he went to his pharmacy and realized that they were closed so he was coming back up to the 3rd floor to see if he can get his prescriptions sent to another pharmacy when he felt hot flushed and lightheaded. He had no chest pain or chest pressure. No palpitations. The patient had been sent home with expectations of doing a cardiac catheterization later on this week. His blood pressure was found to be 99/70 is afebrile. His white count 11.2. Sodium is 136. His blood sugar was 140 and then 129. His drug tox screen is negative. No medications were given in the emergency room. Cardiology has been notified. The patient is being admitted to observation Review of Systems Review of Systems: See HPI All systems reviewed & are unremarkable except as noted in HPI and below Constitutional: Constitutional: Reports as per HPI and Reports no additional constitutional complaints Eyes: Eyes: Reports as per HPI and Reports no additional eye complaints ENT: Reports system reviewed and no additional complaints, except as documented and Reports Normal hearing present Cardiovascular: Cardiovascular: Reports no additional cardiovascular complaints Respiratory: Respiratory: Reports no additional respiratory complaints and Reports no additional respiratory complaints Gastrointestinal: Gastrointestinal: Reports as per HPI and Reports no additional gastrointestinal complaints Musculoskeletal: Musculoskeletal: Reports no additional musculoskeletal complaints Integumentary/Breasts: Skin/Breast: Reports system reviewed and no additional complaints, except as docu and Reports as per HPI Neurologic: Reports system reviewed and no additional complaints, except as documented, Reports as per HPI and Reports Normal hearing present Psychiatric: Psychiatric: Reports no additional psychiatric complaints and Reports as per HPI Endocrine: Endocrine: Reports no additional endocrine complaints Hematologic/Lymphatic: Hematologic/Lymphatic: Reports no additional hematologic/lymphatic complaints Allergic/Immunologic: Allergic/Immunologic: Reports no additional allergic/immunologic complaints [facility] Past Medical History Medical History (Updated 11/27/21 @ 00:11 by Lor Jean Baptiste NP) COVID-19 (01/2020) DM2 (diabetes mellitus, type 2) Exocrine pancreatic insufficiency Heart failure with reduced ejection fraction Pancreatitis (~2019) Surgical History Surgical History History of vasectomy Family History Family History Sibling cardiomyopathy, Onset Age: 30 Father Diabetes mellitus Mother Bipolar disorder Heart disease Social History Social History (Updated 11/27/21 @ 00:05 by Lor Jean Baptiste NP) Social History: The patient lives with his and he has 2 children. He occasionally has a drink of alcohol. He is a former smoker. 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 He denies any marijuana or illicit drugs. Code status: Full code Surrogate decision maker: Smoking packs per day: 1 Smoking cigarettes per day: 20.0 Years smoked: 20 Smoking pack-years: 20.00 Smoking status: Former smoker Tobacco type: cigarettes Alcohol intake: current Drinks per week: 9 Alcohol use details: The patient drinks up to 6 alcoholic beverages 2 to 3 times a week. Substance use: nev
--- NOTE | 2021-11-26 20:50 | ADMGEN ---
This patient, Anoop Francis, was admitted to [facility] Surg Room 301-01 at 1930. Patient/family oriented to hospital policies and general routines including ID bracelet, bed and alarms, visiting hours, pain management, procedures, bathroom and other care routines, personal items, smoking policy, room service/diet, and visiting hours. Information on how to activate the Rapid Response Team has been discussed. Patient/Family are encouraged to report perceived risks to care and to ask questions if they do not understand what they are told or what they should do.
[2021-11-27] VITALS (13 sets, daily range): BP systolic 93–117; BP diastolic 63–80; PULSE 75–96; RESP 12–18; TEMP 36.2–36.9; O2SAT 96–100
[2021-11-27 06:29] LABS: Basophils Absolute Auto 0.1 K/mm3 (0.0-0.1); Basophils Percent Auto 0.8 % (0.2-1.2); Eosinophils Absolute Auto 0.2 K/mm3 (0-0.3); Eosinophils Percent Auto 2.3 % (0-4.4); Hematocrit 43.8 % (42.0-52.0); Hemoglobin 13.3 g/dL (14.0-18.0); Immature Granulocyte Absolute 0.02 K/mm3 (0.00-0.031); Immature Granulocyte Percent A 0.2 % (0-0.5); Lymphocytes Absolute Auto 2.45 K/mm3 (0.9-3.2); Lymphocytes Percent Auto 29.3 % (18.3-44.2); Mean Corpuscular HGB Conc 30.4 g/dl (32-36); Mean Corpuscular Volume 82.2 fl (80-100); Mean Platelet Volume 12.4 fl (7.4-10.4); Monocytes Absolute Auto 0.6 K/mm3 (0.1-0.6); Monocytes Percent Auto 7.4 % (2.6-8.5); Platelet Count Result 239 k/mm3 (150-375); Red Blood Count 5.33 M/mm3 (4.6-6.20); Red Cell Distribution Width 14.2 % (11.5-14.5); White Blood Count 8.4 K/mm3 (4.5-10.0)
[2021-11-27 06:55] LABS: Alanine Aminotransferase 55 U/L (6-50); Albumin Level 4.3 g/dL (3.5-5.1); Alkaline Phosphatase 66 U/L (38-126); Anion Gap 11 mmol/L (8-16); Aspartate Amino Transferase 35 U/L (17-59); Bilirubin,Total 0.8 mg/dL (0.2-1.3); Blood Urea Nitrogen 16 mg/dL (9-20); Calcium 8.7 mg/dL (8.4-10.2); Carbon Dioxide 30 mmol/L (22-30); Chloride 100 mmol/L (98-107); Estimated CRCL calculation 90 ml/min; Estimated Glomerular Filt Rate > 60; Glucose 98 mg/dL (65-110); Magnesium 2.3 mg/dL (1.6-2.3); Potassium 3.7 mmol/L (3.4-5.0); Sodium 141 mmol/L (137-145)
[2021-11-27 08:04] LABS: Glucose Point of Care 111 mg/dl (65-105)
[2021-11-27] MEDS: SACUBITRIL/VALSARTAN 24-26 MG TABLET 1 TAB PO ×2 (08:38→20:39)
[2021-11-27] MEDS: SPIRONOLACTONE 25 MG TABLET PO (08:39)
[2021-11-27] MEDS: carvediloL 3.125 MG TABLET PO ×2 (08:39→20:39)
[2021-11-27] MEDS: FUROSEMIDE 40 MG TABLET PO (10:34)
[2021-11-27] MEDS: EMPAGLIFLOZIN 10 MG TABLET PO (10:34)
[2021-11-27 11:45] LABS: Glucose Point of Care 104 mg/dl (65-105)
--- NOTE | 2021-11-27 13:00 | PM.CNCAR ---
Assessment and Plan Assessment and plan (1) Near syncope: Code(s): R55 - Syncope and collapse Status: Acute (2) Cardiomyopathy: Code(s): I42.9 - Cardiomyopathy, unspecified Status: Acute (3) Heart failure with reduced ejection fraction: Code(s): I50.20 - Unspecified systolic (congestive) heart failure Status: Acute (4) DM2 (diabetes mellitus, type 2): Code(s): E11.9 - Type 2 diabetes mellitus without complications Status: Acute Plan Suspect that his near syncope may have been from orthostasis, likely due to overdiuresis. Will encourage oral intake. Discontinue Lasix. Patient likely may not need daily scheduled Lasix, and may be better off with PRN Lasix. Continue Coreg, Jardiance, Entresto, Aldactone. Patient to ambulate around his room and hallways and see how he feels. Will do cardiac cath tomorrow morning. Patient to be NPO at midnight. History of Present Illness History of Present Illness Consult date/time: 11/27/21 13:00 Reason For Visit: Near Syncope, Cardiomyopathy Narrative: Patient was discharged yesterday afternoon. He later returned to the hospital 3RD floor because his pharmacy was closed and he wanted his medications to another pharmacy. When on the 3RD floor, patient felt dizzy/lightheaded, felt like he was gonna pass out. He did not lose consciousness. Given his symptoms, a rapid response was called on him. He was taken to the ER, and then readmitted to the 3RD floor. Review of Systems Review of Systems: All systems reviewed & are unremarkable except as noted in HPI and below (HPI) [facility] Past Medical History Medical History COVID-19 (01/2020) DM2 (diabetes mellitus, type 2) Exocrine pancreatic insufficiency Heart failure with reduced ejection fraction Pancreatitis (~2019) Surgical History Surgical History History of vasectomy Family History Family History Sibling cardiomyopathy, Onset Age: 30 Father Diabetes mellitus Mother Bipolar disorder Heart disease Social History Social History Social History: The patient lives with his and he has 2 children. He occasionally has a drink of alcohol. He is a former smoker. 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 He denies any marijuana or illicit drugs. Code status: Full code Surrogate decision maker: Smoking packs per day: 1 Smoking cigarettes per day: 20.0 Years smoked: 20 Smoking pack-years: 20.00 Smoking status: Former smoker Tobacco type: cigarettes Alcohol intake: current Drinks per week: 9 Alcohol use details: The patient drinks up to 6 alcoholic beverages 2 to 3 times a week. Substance use: never Additional living arrangements comments: He lives at home with his and children. 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 Spiritual care concerns: No Meds Home Medications and Allergies Home Medications Medication Instructions Recorded Confirmed Type carvedilol 3.125 mg tablet (Coreg) 3.125 mg PO Q12HR 1 month #60 tabs 11/26/21 11/26/21 Rx empagliflozin 10 mg tablet 10 mg PO DAILY 1 month #30 tabs 11/26/21 11/26/21 Rx (Jardiance) furosemide 40 mg tablet 40 mg PO DAILY 1 month #30 tabs 11/26/21 11/26/21 Rx sacubitril 24 mg-valsartan 26 mg 1 tablet PO Q12HR 1 month #60 tabs 11/26/21 11/26/21 Rx tablet (Entresto) spironolactone 25 mg tablet 25 mg PO DAILY 1 month #30 tabs 11/26/21 11/26/21 Rx (Aldactone) Allergies Allergy/AdvReac Type Severity Reaction Status Date / Time No Known Allergies Allergy Verified 11/24/21 21:20 Vital Signs Vital Signs - 24 hr 11/26/21 17:19 11/26/21 17:27 11/26/21 17:28 Temperature 37.0 C Pulse Rate 82 88 Respiratory Rate 18 Blood Pressure 1
[2021-11-27 14:54] LABS: Appearance Urine Clear (Clear); Bilirubin Urine Negative (Negative); Blood Urine Negative (Negative); Color Urine Yellow (Yellow); Glucose Urine UA 3+ mg/dL (Negative); Ketones Urine Negative (Negative); Leukocyte Esterase Ur Negative LEU/UL (Negative); Nitrate Urine Negative (Negative); Protein Urine Negative (Negative); Urobilinogen Urine 0.2 mg/dL (<2.0)
[2021-11-27 15:00] LABS: Amphetamine Screen Urine Negative (Negative); Barbiturate Screen Urine Negative (Negative); Benzodiazepines Screen Urine Negative (Negative); Cannabinoid Screen Urine Negative (Negative); Cocaine Screen Urine Negative (Negative); Methadone Screen Urine Negative (Negative); Mucus Urine Rare /lpf; Opiate Screen Urine Negative (Negative); Phencyclidine Screen Urine Negative (Negative); RBC Urine 0-2 /hpf (0-2)
[2021-11-27 15:01] LABS: Add Urine Microscopic? YES
[2021-11-27 16:19] LABS: Glucose Point of Care 93 mg/dl (65-105)
--- NOTE | 2021-11-27 16:38 | PM.IMPN ---
Progress Note: A&P Assessment and Plan (1) Near syncope: Code(s): R55 - Syncope and collapse Status: Acute Assessment and Plan: Vital signs in telemetry during episode appeared stable, symptoms could be secondary to hypotension versus bradycardia versus arrhythmia, appreciate Cardiology consultation, planus discontinue Lasix and do a heart catheterization in the morning, NPO at midnight (2) Cardiomyopathy: Code(s): I42.9 - Cardiomyopathy, unspecified Status: Acute Assessment and Plan: Echo showed an EF of 15% with dilated heart failure noted, appreciate cardiology consultation GDMT: entresto, coreg, jardiance, aldactone, hold Lasix (3) Combined systolic and diastolic congestive heart failure: Code(s): I50.40 - Unspecified combined systolic (congestive) and diastolic (congestive) heart failure Status: Acute Assessment and Plan: appears euvolemic (4) Right heart failure: Code(s): I50.810 - Right heart failure, unspecified Status: Acute Assessment and Plan: 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 (5) Hyperglycemia: Code(s): R73.9 - Hyperglycemia, unspecified Status: Acute Assessment and Plan: A1c 5.7, hyperglycemia resolved today, no need for further monitoring at this time (6) Exocrine pancreatic insufficiency: Code(s): K86.81 - Exocrine pancreatic insufficiency Status: Acute Assessment and Plan: Creon with meals (7) Leukocytosis: Code(s): D72.829 - Elevated white blood cell count, unspecified Status: Acute Assessment and Plan: Likely reactive, monitor Plan DVT prophylaxis with Lovenox GI prophylaxis not indicated Code status full code Subjective Date/time seen: 11/27/21 16:38 Interval history: No overnight events noted. No chest pain or shortness of breath. No nausea, vomiting or diarrhea. No fevers or chills. Review of Systems Review of Systems: 12 point review of systems was assessed and was negative except as noted in the HPI Exam Narrative: General: No acute distress, alert and oriented per baseline HEENT: Atraumatic, normocephalic, mucous membranes moist CV: Regular rate and rhythm, S1, S2 Lungs: Clear to auscultation bilaterally, no rales or crackles noted, no wheezes, good air entry Abdomen: Soft, nontender, nondistended Extremities: Normal to inspection Skin: No rashes noted, no lesions or wounds seen Psych: Euthymic, normal affect Objective Data Vital Signs Vital Signs: Vital Signs - 24 hr 11/26/21 17:19 11/26/21 17:27 11/26/21 17:28 Temperature 98.6 F Pulse Rate 82 88 Respiratory Rate 18 Blood Pressure 120/104 H Pulse Oximetry 100 100 Oxygen Delivery Room Air Room Air 11/26/21 19:22 11/26/21 20:00 11/26/21 20:00 Temperature 97.2 F L Pulse Rate 78 85 85 Respiratory Rate 19 18 Blood Pressure 106/81 109/82 109/82 Pulse Oximetry 97 100 Oxygen Delivery 11/26/21 20:05 11/26/21 20:10 11/26/21 20:00 Temperature Pulse Rate 87 91 86 Respiratory Rate Blood Pressure 102/74 107/70 Pulse Oximetry Oxygen Delivery 11/26/21 20:00 11/26/21 23:53 11/27/21 00:00 Temperature 97.4 F L Pulse Rate 82 75 Respiratory Rate 18 Blood Pressure 99/70 L Pulse Oximetry 99 Oxygen Delivery Room Air 11/27/21 04:00 11/27/21 04:00 11/27/21 08:36 Temperature 98.4 F Pulse Rate 78 76 Respiratory Rate 12 Blood Pressure 95/73 L 117/72 Pulse Oximetry 96 Oxygen Delivery 11/27/21 08:39 11/27/21 08:00 11/27/21 08:00 Temperature Pulse Rate 78 78 Respiratory Rate Blood Pressure Pulse Oximetry Oxygen Delivery Room Air 11/27/21 08:00 11/27/21 11:10 11/27/21 11:09 Temperature 97.4 F L 97.4 F L 97.4 F L Pulse Rate 91 91 92 Respiratory Rate 16 16 16 Blood Pressure 96/75 L 96/65 L 108/70 Pulse Oximetry 97 97 99 Oxygen Delivery 11/27/21 11:09 11/27/21 12:00
[2021-11-27 21:27] LABS: Glucose Point of Care 127 mg/dl (65-105)
[2021-11-28] VITALS (26 sets, daily range): BP systolic 84–117; BP diastolic 44–86; PULSE 77–100; RESP 14–20; TEMP 36.1–36.6; O2SAT 96–100
[2021-11-28 00:33] LABS: Glucose Point of Care 87 mg/dl (65-105)
[2021-11-28 08:07] LABS: Glucose Point of Care 106 mg/dl (65-105)
--- NOTE | 2021-11-28 08:30 | PM.PNCARD ---
Progress Note: A&P Assessment and Plan (1) Heart failure with reduced ejection fraction: Code(s): I50.20 - Unspecified systolic (congestive) heart failure Status: Acute Plan Cardiac cath planned for this morning. Continue with current GDMT: Coreg, Entresto, Aldactone, Jardiance. Further recommendations pending results of cardiac cath. Subjective Date/time seen: 11/28/21 08:30 Interval history: No acute events overnight. Cardiac cath planned for this morning. Patient without symptoms. Review of Systems Review of Systems: All systems reviewed & are unremarkable except as noted in HPI and below (subjective) Exam Const: General: comfortable and no acute distress Neck: Neck: no JVD Resp: Effort & Inspection: normal respiratory effort Auscultation: clear to auscultation bilaterally Cardio: Rate: regular rate Rhythm: regular rhythm Heart sounds: no murmurs GI: GI Palp: Yes Soft to palpation and No Tenderness to palpation present (GI) Skin: General skin exam: normal color Neuro: Speech: normal speech Extrem: General: no edema Psych: Mental Status: mental status grossly normal Objective Data Vital Signs Vital Signs: Vital Signs - 24 hr 11/27/21 08:36 11/27/21 08:39 11/27/21 11:10 Temperature 36.3 C L Pulse Rate 78 91 Respiratory Rate 16 Blood Pressure 117/72 96/65 L Pulse Oximetry 97 Oxygen Delivery 11/27/21 11:09 11/27/21 11:09 11/27/21 12:00 Temperature 36.3 C L 36.3 C L Pulse Rate 92 89 94 Respiratory Rate 16 16 Blood Pressure 108/70 111/79 Pulse Oximetry 99 100 Oxygen Delivery 11/27/21 12:00 11/27/21 16:00 11/27/21 16:00 Temperature 36.4 C 36.2 C L Pulse Rate 78 89 85 Respiratory Rate 16 18 Blood Pressure 105/66 98/80 L Pulse Oximetry 98 98 Oxygen Delivery 11/27/21 20:39 11/27/21 20:00 11/27/21 20:00 Temperature 36.8 C Pulse Rate 91 91 96 Respiratory Rate 18 18 Blood Pressure 109/72 Pulse Oximetry 98 99 Oxygen Delivery Room Air 11/27/21 20:00 11/27/21 20:45 11/27/21 20:48 Temperature Pulse Rate Respiratory Rate Blood Pressure 109/72 102/69 93/63 L Pulse Oximetry Oxygen Delivery 11/28/21 00:00 11/28/21 04:00 11/28/21 04:00 Temperature 36.4 C 36.4 C Pulse Rate 77 85 84 Respiratory Rate 16 20 Blood Pressure 88/60 L 84/62 L Pulse Oximetry 97 96 Oxygen Delivery 11/28/21 08:00 Temperature Pulse Rate 87 Respiratory Rate Blood Pressure Pulse Oximetry Oxygen Delivery Intake/Output Intake/Output: Intake & Output 11/25/21 11/26/21 11/27/21 11/28/21 23:59 23:59 23:59 23:59 Intake Total 700 0 Output Total 1625 Balance -925 0 Meds/Results Medications: Active Medications Generic Name Dose Route Start Last Admin Trade Name Freq PRN Reason Stop Dose Admin Carvedilol 3.125 mg 11/27/21 09:00 11/27/21 20:39 Carvedilol 3.125 Mg Tablet PO 3.125 mg Q12HR JAQUI Administration Dextrose 12.5 gm 11/27/21 00:03 Dextrose 50% 25 Gm/50 Ml Syringe IV PUSH PRN PRN Hypoglycemia Protocol Empagliflozin 10 mg 11/27/21 09:00 11/27/21 10:34 Empagliflozin 10 Mg Tablet PO 10 mg DAILY JAQUI Administration Glucagon 1 mg 11/27/21 00:03 Glucagon For Inj 1 Mg Vial IM PRN PRN Hypoglycemia Protocol Glucose 15 gm 11/27/21 00:03 Glucose Oral Gel 15 Gm Of Glucse In 37.5 Gm Tube PO PRN PRN Hypoglycemia Protocol Dextrose 1,000 mls @ 100 mls/hr 11/27/21 00:03 Dextrose 5% 1,000 Ml IVPB PRN PRN Hypoglycemia Protocol Insulin Aspart 2 - 5 units 11/27/21 08:00 11/28/21 08:12 Insulin Aspart (*Bkc) 100 Units/Ml SUB-Q Not Given TIDWM JAQUI Protocol Sacubitril/Valsartan 1 tab 11/27/21 09:00 11/27/21 20:39 Sacubitril/Valsartan 24-26 Mg Tablet PO 1 tab Q12HR JAQUI Administration Spironolactone 25 mg 11/27/21 09:00 11/27/21 08:39 Spironolactone 25 Mg Tablet PO 25 mg
--- NOTE | 2021-11-28 08:32 | WPDMODSED ---
Moderate Sedation Note-Pt Data Patient Data Diagnosis: Cardiomyopathy Present Complaint: Cardiomyopathy Procedure to be performed/Plan: Cardiac cath, LHC Allergies Allergy/AdvReac Type Severity Reaction Status Date / Time No Known Allergies Allergy Verified 11/24/21 21:20 Home Medications Medication Instructions Recorded Confirmed Type carvedilol 3.125 mg tablet (Coreg) 3.125 mg PO Q12HR 1 month #60 tabs 11/26/21 11/26/21 Rx empagliflozin 10 mg tablet 10 mg PO DAILY 1 month #30 tabs 11/26/21 11/26/21 Rx (Jardiance) furosemide 40 mg tablet 40 mg PO DAILY 1 month #30 tabs 11/26/21 11/26/21 Rx sacubitril 24 mg-valsartan 26 mg 1 tablet PO Q12HR 1 month #60 tabs 11/26/21 11/26/21 Rx tablet (Entresto) spironolactone 25 mg tablet 25 mg PO DAILY 1 month #30 tabs 11/26/21 11/26/21 Rx (Aldactone) Current Medications: Active Medications Carvedilol (Carvedilol 3.125 Mg Tablet) 3.125 mg PO Q12HR [facility] Last Admin: 11/27/21 20:39 Dose: 3.125 mg Dextrose (Dextrose 50% 25 Gm/50 Ml Syringe) 12.5 gm IV PUSH PRN PRN; Protocol PRN Reason: Hypoglycemia Empagliflozin (Empagliflozin 10 Mg Tablet) 10 mg PO DAILY [facility] Last Admin: 11/27/21 10:34 Dose: 10 mg Glucagon (Glucagon For Inj 1 Mg Vial) 1 mg IM PRN PRN; Protocol PRN Reason: Hypoglycemia Glucose (Glucose Oral Gel 15 Gm Of Glucse In 37.5 Gm Tube) 15 gm PO PRN PRN; Protocol PRN Reason: Hypoglycemia Dextrose (Dextrose 5% 1,000 Ml) 1,000 mls @ 100 mls/hr IVPB PRN PRN; Protocol PRN Reason: Hypoglycemia Insulin Aspart (Insulin Aspart (*Bkc) 100 Units/Ml) 2 - 5 units SUB-Q TIDWM [facility]; Protocol Last Admin: 11/28/21 08:12 Dose: Not Given Sacubitril/Valsartan (Sacubitril/Valsartan 24-26 Mg Tablet) 1 tab PO Q12HR [facility] Last Admin: 11/27/21 20:39 Dose: 1 tab Spironolactone (Spironolactone 25 Mg Tablet) 25 mg PO DAILY JAQUI Last Admin: 11/27/21 08:39 Dose: 25 mg Sedation/Anesthesia: No previous sedation/anesthesia problems (including family history). [facility] Past Medical History Medical History COVID-19 (01/2020) DM2 (diabetes mellitus, type 2) Exocrine pancreatic insufficiency Heart failure with reduced ejection fraction Pancreatitis (~2019) Surgical History Surgical History History of vasectomy Family History Family History Sibling cardiomyopathy, Onset Age: 30 Father Diabetes mellitus Mother Bipolar disorder Heart disease Social History Social History Social History: The patient lives with his and he has 2 children. He occasionally has a drink of alcohol. He is a former smoker. 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 He denies any marijuana or illicit drugs. Code status: Full code Surrogate decision maker: Smoking packs per day: 1 Smoking cigarettes per day: 20.0 Years smoked: 20 Smoking pack-years: 20.00 Smoking status: Former smoker Tobacco type: cigarettes Alcohol intake: current Drinks per week: 9 Alcohol use details: The patient drinks up to 6 alcoholic beverages 2 to 3 times a week. Substance use: never Additional living arrangements comments: He lives at home with his and children. 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 Spiritual care concerns: No Mod Sed Physical Exam Physical Exam Pre Procedural Exam: Normal: Appearance, Lungs, Heart Rate, Heart Rhythm, Neuro Exam, Abdomen, Extremities and Skin Hours since solid foods: 10 Hours since liquid intake: 10 Mallampati Classification: class II Internal Medicine - PN: Obj Da Vital Signs Vital Signs: Vital Signs - 24 hr 11/27/21 08:36 11/27/21 08:39 11/27/21 11:10 Temperature 36.3 C L Pulse Rate 78 91 Respiratory Rate 16 Blood Pressure 117/72 96/65 L Pulse Oxime
--- NOTE | 2021-11-28 08:34 | WPDCARDPROC ---
Cardiac Cath Procedure Note Date of procedure:: 11/28/21 Performing physician:: CATHETERIZATION LABORATORY REPORT Procedure Date: 11/28/2021 Meter Tester: Katie Lopez M.D., [facility]? Referring Physician: Katie Lopez M.D. Anesthesia: Versed and Fentanyl were ordered and given in my presence at 08:33, procedure ended at 08:56. Supervision of nurse monitored moderate sedation with Versed and Fentanyl was provided for 23 minutes. Total of Versed 2mg and Fentanyl 50mcg were administered by labor commissioner RN. Pre-op Diagnosis: New diagnosis of cardiomyopathy / heart failure with reduced ejection fraction Post-op Diagnosis: Non-obstructive coronary arteries Non-ischemic cardiomyopathy Left ventricular end-diastolic pressure of 15mmHg Procedure(s): Left heart catheterization with coronary angiography Access Site: Right radial artery Brief History and Clinical Indications: Patient is a 46-year-old male who is referred for coronary angiography for ischemic evaluation for new diagnosis of heart failure with reduced ejection fraction. All risks, benefits and alternatives to left heart catheterization with or without percutaneous coronary intervention was discussed at length with the patient. Risk of complications including but not limited to bleeding, infection, arrhythmia, stroke, worsening kidney function, blood loss, groin hematoma, limb loss, emergency coronary artery bypass grafting, and even were discussed with the patient and all questions were answered. The patient understood and wished to proceed. Time out called, patient name, date of , medical record number, allergies, procedure performed, identify Meter Tester, patient and staff member concurred with accurate data, procedure carried on. Findings: LEFT HEART CATHETERIZATION FINDINGS: 1. Left main: Large caliber vessel. The left main coronary artery is widely patent without any significant obstructive disease. 2. Left anterior descending: Large caliber vessel. The LAD and the diagonal branches have mild luminal irregularities without any significant obstructive angiographic disease. 3. Left circumflex: Large caliber vessel. The left circumflex artery and the main marginal branches have mild luminal irregularities without any significant obstructive angiographic disease. 4. Right coronary artery: Large caliber vessel. The RCA has mild luminal irregularities without any significant obstructive angiographic disease. The RCA is the dominant vessel. 5. Left ventricle: A. End-diastolic pressure 15 mmHg. B. LV gram deferred. C. No significant gradient across aortic valve on catheter pullback. Description of Procedure: Informed consent signed and placed in the chart. Patient transferred to labor commissioner room. Prepped and draped in usual sterile fashion. 2% lidocaine injected subcutaneously in right wrist area. 22-gauge venipuncture catheter used to access the right radial artery with the Seldinger technique. 6-FR slender sheath placed in right radial artery. Nitroglycerine and Cardene was given intraarterial through the sheath. Versacore wire advanced under fluoroscopy 5F Tig 4 diagnostic catheter engaged Left Main Coronary Artery. 5F Tig 4 diagnostic catheter engaged Right Coronary Artery Multiple orthogonal angiogram obtained and reviewed 5F Tig 4 diagnostic catheter crossed aortic valve to obtain LVEDP, LV angiogram deferred. Hemostasis was achieved by application of TR band. ? Assessment: Non-obstructive coronary arteries Non-ischemic cardiomyopathy Left ventricular end-diastolic pressure of 15mmHg Post Operative Condition: Stable No significant blood loss Disposition: Floor Plan: The patient will be monitored in the recovery area. Continue aggressive medical therapy and risk factor modification. Continue GDMT for heart failure with reduced ejection fraction. ? Katie Lopez M.D. Interventional Cardiology
--- NOTE | 2021-11-28 09:22 | SUR.PHASEII ---
Family at bedside with patient. MD speaking with patient and family.
[2021-11-28 10:38] LABS: Anion Gap 11 mmol/L (8-16); Blood Urea Nitrogen 17 mg/dL (9-20); Calcium 8.4 mg/dL (8.4-10.2); Carbon Dioxide 23 mmol/L (22-30); Chloride 100 mmol/L (98-107); Estimated CRCL calculation 118 ml/min; Estimated Glomerular Filt Rate > 60; Glucose 105 mg/dL (65-110); Potassium 3.8 mmol/L (3.4-5.0); Sodium 134 mmol/L (137-145)
--- NOTE | 2021-11-28 11:42 | SUR.PHASEII ---
Report given to Dayami MARIA on 3 MED SURG. Site unchanged, c/d/i dressing.
--- NOTE | 2021-11-28 12:40 | PM.DS ---
DS: Admitting Diagnosis Discharge Date November 28, 2021 Admitting Diagnosis Presyncopal episode DS: Discharge Diagnosis Discharge Diagnosis (1) Near syncope: Code(s): R55 - Syncope and collapse Status: Acute Assessment and Plan: Lasix was held due to concerns for over-diuresis, creatinine clearance improved, creatinine decreased, suspect symptoms were secondary to over-diuresis, will discuss charge patient on p.r.n. Lasix as opposed to daily (2) Cardiomyopathy: Code(s): I42.9 - Cardiomyopathy, unspecified Status: Acute Assessment and Plan: Echo showed an EF of 15% with dilated heart failure noted, appreciate cardiology consultation GDMT: entresto, coreg, jardiance, aldactone, hold Lasix indefinitely, Aldactone dose reduced due to low blood pressure Left heart catheterization performed today, report pending (3) Combined systolic and diastolic congestive heart failure: Code(s): I50.40 - Unspecified combined systolic (congestive) and diastolic (congestive) heart failure Status: Acute Assessment and Plan: appears euvolemic (4) Right heart failure: Code(s): I50.810 - Right heart failure, unspecified Status: Acute Assessment and Plan: 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 (5) Hyperglycemia: Code(s): R73.9 - Hyperglycemia, unspecified Status: Acute Assessment and Plan: A1c 5.7, hyperglycemia resolved today, no need for further monitoring at this time (6) Exocrine pancreatic insufficiency: Code(s): K86.81 - Exocrine pancreatic insufficiency Status: Acute Assessment and Plan: Creon with meals (7) Leukocytosis: Code(s): D72.829 - Elevated white blood cell count, unspecified Status: Acute Assessment and Plan: Likely reactive, monitor Plan DVT prophylaxis with Lovenox GI prophylaxis not indicated Code status full code DS: Summary Time Spent with Patient Time attestation: Total time spent providing and/or coordinating discharge services: Exam Narrative: General: No acute distress, alert and oriented per baseline HEENT: Atraumatic, normocephalic, mucous membranes moist CV: Regular rate and rhythm, S1, S2 Lungs: Clear to auscultation bilaterally, no rales or crackles noted, no wheezes, good air entry Abdomen: Soft, nontender, nondistended Extremities: Normal to inspection Skin: No rashes noted, no lesions or wounds seen Psych: Euthymic, normal affect DS: Data Data Completed and Pending Labs on day of discharge: Labs from last 24 hours 11/28/21 11/28/21 11/28/21 10:09 07:52 00:29 Sodium 134 L Potassium 3.8 Chloride 100 Carbon Dioxide 23 Anion Gap 11 BUN 17 Creatinine 0.90 Estim Creat Clear Calc 118 Estimated GFR > 60 Glucose 105 POC Capillary Glucose 106 H 87 Calcium 8.4 Urine Color Urine Appearance Urine pH Ur Specific [place] Urine Protein Urine Glucose (UA) Urine Ketones Ur Blood (Man) Urine Nitrate Urine Bilirubin Urine Urobilinogen Leukocyte Esterase Rfl Urine RBC Urine WBC Urine Mucus Urine Opiates Screen Urine Methadone Screen Ur Barbiturates Screen Ur Phencyclidine Scrn Ur Amphetamine Screen U Benzodiazepines Scrn Urine Cocaine Screen U Cannabinoids Screen 11/27/21 11/27/21 11/27/21 21:18 16:07 14:23 Sodium Potassium Chloride Carbon Dioxide Anion Gap BUN Creatinine Estim Creat Clear Calc Estimated GFR Glucose POC Capillary Glucose 127 H 93 Calcium Urine Color Urine Appearance Urine pH Ur Specific [place] Urine Protein Urine Glucose (UA) Urine Ketones Ur Blood (Man) Urine Nitrate Urine Bilirubin Urine Urobilinogen Leukocyte Esterase Rfl Urine RBC Urine WBC Urine Mucus Urine Opiates Screen Negative Urine Methadone Screen Negat
[2021-11-28] MEDS: EMPAGLIFLOZIN 10 MG TABLET PO (14:31)
--- NOTE | 2021-11-28 14:32 | PM.IMPN ---
Progress Note: A&P Assessment and Plan (1) Near syncope: Code(s): R55 - Syncope and collapse Status: Acute Assessment and Plan: Lasix was held due to concerns for over-diuresis, creatinine clearance improved, creatinine decreased, suspect symptoms were secondary to over-diuresis, will discharge patient on p.r.n. Lasix as opposed to daily (2) Cardiomyopathy: Code(s): I42.9 - Cardiomyopathy, unspecified Status: Acute Assessment and Plan: Echo showed an EF of 15% with dilated heart failure noted, appreciate cardiology consultation GDMT: entresto, coreg, jardiance, aldactone, hold Lasix indefinitely, Aldactone dose reduced due to low blood pressure Left heart catheterization performed today, report pending (3) Combined systolic and diastolic congestive heart failure: Code(s): I50.40 - Unspecified combined systolic (congestive) and diastolic (congestive) heart failure Status: Acute Assessment and Plan: appears euvolemic (4) Right heart failure: Code(s): I50.810 - Right heart failure, unspecified Status: Acute Assessment and Plan: 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 (5) Hyperglycemia: Code(s): R73.9 - Hyperglycemia, unspecified Status: Acute Assessment and Plan: A1c 5.7, hyperglycemia resolved today, no need for further monitoring at this time (6) Exocrine pancreatic insufficiency: Code(s): K86.81 - Exocrine pancreatic insufficiency Status: Acute Assessment and Plan: Creon with meals (7) Leukocytosis: Code(s): D72.829 - Elevated white blood cell count, unspecified Status: Acute Assessment and Plan: Likely reactive, monitor Plan DVT prophylaxis with Lovenox GI prophylaxis not indicated Code status full code Subjective Date/time seen: 11/28/21 14:32 Interval history: Patient states he feels a little lightheaded when he first stands up. No overnight events noted. No chest pain or shortness of breath. No nausea, vomiting or diarrhea. No fevers or chills. Review of Systems Review of Systems: 12 point review of systems was assessed and was negative except as noted in the HPI Exam Narrative: General: No acute distress, alert and oriented per baseline HEENT: Atraumatic, normocephalic, mucous membranes moist CV: Regular rate and rhythm, S1, S2 Lungs: Clear to auscultation bilaterally, no rales or crackles noted, no wheezes, good air entry Abdomen: Soft, nontender, nondistended Extremities: Normal to inspection Skin: No rashes noted, no lesions or wounds seen Psych: Euthymic, normal affect Objective Data Vital Signs Vital Signs: Vital Signs - 24 hr 11/27/21 16:00 11/27/21 16:00 11/27/21 20:39 Temperature 97.1 F L Pulse Rate 89 85 91 Respiratory Rate 18 Blood Pressure 98/80 L Pulse Oximetry 98 Oxygen Delivery 11/27/21 20:00 11/27/21 20:00 11/27/21 20:00 Temperature 98.2 F Pulse Rate 91 96 Respiratory Rate 18 18 Blood Pressure 109/72 109/72 Pulse Oximetry 98 99 Oxygen Delivery Room Air 11/27/21 20:45 11/27/21 20:48 11/28/21 00:00 Temperature 97.6 F Pulse Rate 77 Respiratory Rate 16 Blood Pressure 102/69 93/63 L 88/60 L Pulse Oximetry 97 Oxygen Delivery 11/28/21 04:00 11/28/21 04:00 11/28/21 08:00 Temperature 97.6 F Pulse Rate 85 84 87 Respiratory Rate 20 Blood Pressure 84/62 L Pulse Oximetry 96 Oxygen Delivery 11/28/21 09:03 11/28/21 09:15 11/28/21 08:00 Temperature 97.1 F L Pulse Rate 82 80 Respiratory Rate 14 14 Blood Pressure 96/71 L 93/71 L Pulse Oximetry 96 97 97 Oxygen Delivery Room Air Room Air Room Air 11/28/21 09:30 11/28/21 09:45 11/28/21 10:00 Temperature Pulse Rate 84 78 79 Respiratory Rate 14 16 16 Blood Pressure 98/71 L 91/69 L 94/67 L Pulse Oximetry 97 97 98 Oxygen Delivery Room Air Room Air Room Air 11/28/21 10:15 11/28/21 10:30 11/28/21 10:45
[2021-11-28] MEDS: SACUBITRIL/VALSARTAN 24-26 MG TABLET 1 TAB PO (20:28)
[2021-11-28] MEDS: carvediloL 3.125 MG TABLET PO (20:28)
[2021-11-29] VITALS (10 sets, daily range): BP systolic 87–101; BP diastolic 60–78; PULSE 65–104; RESP 16–20; TEMP 36.1–36.6; O2SAT 96–100
[2021-11-29 08:26] LABS: Glucose Point of Care 114 mg/dl (65-105)
[2021-11-29] MEDS: carvediloL 3.125 MG TABLET PO (09:12)
[2021-11-29] MEDS: EMPAGLIFLOZIN 10 MG TABLET PO (09:14)
[2021-11-29] MEDS: SACUBITRIL/VALSARTAN 24-26 MG TABLET 1 TAB PO (09:14)
--- NOTE | 2021-11-29 12:51 | PM.DS ---
DS: Admitting Diagnosis Discharge Date November 29, 2021 Admitting Diagnosis cardiomyopathy DS: Discharge Diagnosis Discharge Diagnosis (1) Near syncope: Code(s): R55 - Syncope and collapse Status: Acute (2) Cardiomyopathy: Code(s): I42.9 - Cardiomyopathy, unspecified Status: Acute (3) Combined systolic and diastolic congestive heart failure: Code(s): I50.40 - Unspecified combined systolic (congestive) and diastolic (congestive) heart failure Status: Acute (4) Right heart failure: Code(s): I50.810 - Right heart failure, unspecified Status: Acute (5) Hyperglycemia: Code(s): R73.9 - Hyperglycemia, unspecified Status: Acute (6) Exocrine pancreatic insufficiency: Code(s): K86.81 - Exocrine pancreatic insufficiency Status: Acute (7) Leukocytosis: Code(s): D72.829 - Elevated white blood cell count, unspecified Status: Acute DS: Summary Hospital Course Hospital Course: patient is a 46-year-old male who came in with near syncope and found to have cardiomyopathy with an EF of 15% which was not new to him on this admission. He was evaluated here to his cardiac medications were maximized. he did undergo catheterization which did not reveal any significant coronary disease. He will follow-up with cardiology. He will be placed on life vest. Time Spent with Patient Time attestation: Total time spent providing and/or coordinating discharge services: Exam Narrative: General: alert and oriented Psych: appropriate mood nad affect Eyes: PERRLA Neck: Trachea midline, no new lesions Skin: no changes Lungs: CTA Cardiac: Normal S1,S2, no MGR ABD: soft, nd, nt, nbs Ext: no new lesions, no cce Vasc: Pulses intact DS: Data Data Completed and Pending Labs on day of discharge: Labs from last 24 hours 11/29/21 08:21 POC Capillary Glucose 114 H Discharge Plan Discharge Attending physician on discharge: Stephen Zhang Consulting providers: Darwin Bashir Discharging Clinician: Stephen Zhang Patient Disposition: Home, Self-Care Activity: no preference Diet: as tolerated Patient Instructions: Antibiotic Form Stand Alone Forms: General Discharge Information Follow-up/Referrals: Darwin Bashir MD [Physician] - Harry Solorzano MD [Primary Care Provider] - Discharge Medications: Continued carvedilol [Coreg] 3.125 mg Tablet 3.125 mg PO Q12HR 30 Days Qty: 60 0RF furosemide 40 mg Tablet 40 mg PO DAILY 30 Days Qty: 30 0RF Entresto 24-26 mg Tablet 1 tablet PO Q12HR 30 Days Qty: 60 0RF spironolactone [Aldactone] 25 mg tablet 25 mg PO DAILY 30 Days Qty: 30 0RF Pancreaze 16,800-56,800- 98,400 unit capsule,delayed release(DR/EC) 1 - 2 cap PO TIDWMEAL Rx Instructions: 1 dose per snack & 2 dose per meal Date of admission: 11/26/21 18:25 Primary Care Provider: Harry Solorzano Admitting Provider: Sara Ayala Attending physician on admission: Sara Ayala Condition: Guarded Prognosis
[2021-11-29] MEDS: SPIRONOLACTONE 12.5 MG TABLET PO (13:07)
--- NOTE | 2021-11-29 13:29 | PM.PNCARD ---
Progress Note: A&P Assessment and Plan (1) Heart failure with reduced ejection fraction: Code(s): I50.20 - Unspecified systolic (congestive) heart failure Status: Acute (2) Nonischemic cardiomyopathy: Code(s): I42.8 - Other cardiomyopathies Status: Acute Plan Okay for discharge today. [employer] paperwork filled out. Please discharge patient on the following GDMT: Spironolactone 12.5mg QD Coreg 3.125mg BID Jardiance 10mg QD Entresto 24/26mg BID Subjective Date/time seen: 11/29/21 13:29 Interval history: No acute events overnight. Patient feeling well this AM. Review of Systems Review of Systems: All systems reviewed & are unremarkable except as noted in HPI and below (subjective) Exam Const: General: comfortable and no acute distress HENMT: Mouth: Yes moist mucous membranes Neck: Neck: no JVD Resp: Effort & Inspection: normal respiratory effort Auscultation: clear to auscultation bilaterally Cardio: Rate: regular rate Rhythm: regular rhythm Heart sounds: no murmurs Skin: General skin exam: normal color Neuro: Speech: normal speech Extrem: General: no edema Psych: Mental Status: mental status grossly normal Objective Data Vital Signs Vital Signs: Vital Signs - 24 hr 11/28/21 13:45 11/28/21 14:45 11/28/21 15:45 Temperature 36.2 C L 36.2 C L 36.3 C L Pulse Rate 88 84 86 Respiratory Rate 20 18 18 Blood Pressure 97/44 L 99/64 L 100/70 Pulse Oximetry 98 98 100 Oxygen Delivery 11/28/21 15:46 11/28/21 15:48 11/28/21 16:45 Temperature 36.1 C L Pulse Rate 96 Respiratory Rate 16 Blood Pressure 95/68 L 108/68 117/74 Pulse Oximetry 100 Oxygen Delivery 11/28/21 20:28 11/28/21 20:00 11/28/21 20:00 Temperature 36.4 C Pulse Rate 100 91 100 Respiratory Rate 18 18 Blood Pressure 102/70 Pulse Oximetry 100 100 Oxygen Delivery Room Air 11/28/21 20:00 11/29/21 00:45 11/29/21 00:00 Temperature 36.2 C L Pulse Rate 95 65 78 Respiratory Rate 20 Blood Pressure 98/62 L Pulse Oximetry 96 Oxygen Delivery 11/29/21 03:40 10/05/22 08:44 11/29/21 09:12 Temperature 36.6 C 36.1 C L Pulse Rate 92 87 90 Respiratory Rate 20 16 Blood Pressure 87/60 L 101/78 Pulse Oximetry 98 100 Oxygen Delivery 11/29/21 08:00 11/29/21 08:30 Temperature Pulse Rate 89 104 H Respiratory Rate Blood Pressure Pulse Oximetry Oxygen Delivery Intake/Output Intake/Output: Intake & Output 11/26/21 11/27/21 11/28/21 11/29/21 23:59 23:59 23:59 23:59 Intake Total 700 880 560 Output Total 1625 Balance -925 880 560 Meds/Results Medications: Active Medications Generic Name Dose Route Start Last Admin Trade Name Jeff PRN Reason Stop Dose Admin Carvedilol 3.125 mg 11/27/21 09:00 11/29/21 09:12 Carvedilol 3.125 Mg Tablet PO 3.125 mg Q12HR JAQUI Administration Dextrose 12.5 gm 11/27/21 00:03 Dextrose 50% 25 Gm/50 Ml Syringe IV PUSH PRN PRN Hypoglycemia Protocol Empagliflozin 10 mg 11/27/21 09:00 11/29/21 09:14 Empagliflozin 10 Mg Tablet PO 10 mg DAILY JAQUI Administration Glucagon 1 mg 11/27/21 00:03 Glucagon For Inj 1 Mg Vial IM PRN PRN Hypoglycemia Protocol Glucose 15 gm 11/27/21 00:03 Glucose Oral Gel 15 Gm Of Glucse In 37.5 Gm Tube PO PRN PRN Hypoglycemia Protocol Dextrose 1,000 mls @ 100 mls/hr 11/27/21 00:03 Dextrose 5% 1,000 Ml IVPB PRN PRN Hypoglycemia Protocol Sacubitril/Valsartan 1 tab 11/27/21 09:00 11/29/21 09:14 Sacubitril/Valsartan 24-26 Mg Tablet PO 1 tab Q12HR JAQUI Administration Spironolactone 12.5 mg 11/29/21 09:00 11/29/21 13:07 Spironolactone 12.5 Mg Tablet PO 12.5 mg DAILY JAQUI Administration Radiology Results: ITS Impressions Chest X-Ray 11/27/21 12:16 IMPRESSION: 1. No acute cardiopulmonary disease. Labs Labs: Laboratory Results - last 24 hr
== END 2021-11-29 18:50 | disposition home or self-care (01) ==
LOC: ANHED 18:35 → ANH3MEDSUR 19:01
PROVIDERS: Internal Medicine; Nurse Practitioner; Admitting Provider Student in an Organized Health Care Education/Training Program; Emergency Provider Emergency Medicine; PCP Family Medicine; Visit Provider Chiropractor
PROC: 4A023N7 Measurement of Cardiac Sampling and Pressure, Left Heart, Percutaneous Approach (ICD-10-PCS; CPT 93452; principal; 2021-11-28 08:30)
DX: I42.8 Other cardiomyopathies (principal); R55 Syncope and collapse; I50.40 Unspecified combined systolic (congestive) and diastolic (congestive) heart failure; I50.810 Right heart failure, unspecified; E11.65 Type 2 diabetes mellitus with hyperglycemia; D72.829 Elevated white blood cell count, unspecified; K86.81 Exocrine pancreatic insufficiency; F10.90 Alcohol use, unspecified, uncomplicated; I45.4 Nonspecific intraventricular block; I25.10 Atherosclerotic heart disease of native coronary artery without angina pectoris; Z87.891 Personal history of nicotine dependence; Z86.16 Personal history of COVID-19; Z87.19 Personal history of other diseases of the digestive system; Z79.84 Long term (current) use of oral hypoglycemic drugs; Z79.899 Other long term (current) drug therapy; Z83.3 Family history of diabetes mellitus; Z82.49 Family history of ischemic heart disease and other diseases of the circulatory system
CPT/HCPCS: 36415; 71045; 80048; 80053; 80307; 81001; 82948; 83735; 83880; 84484; 85025; 85610; 85730; 87077; 87086; 87186; 93005; 93458; 99285; A9270; C1769; C1887; C1894; G0378; J1644; J2250; J3010; J7040

== ENCOUNTER 2022-01-16 11:50 | Emergency (ER) | payer OTHER, SELFPAY ==
[2022-01-16] VITALS (50 sets, daily range): BP systolic 94–118; BP diastolic 61–87; PULSE 60–84; RESP 10–20; TEMP 36.2–36.6; O2SAT 97–100
--- NOTE | ~2022-01-16 | XR_ITS ---
EXAMINATION: XR chest 2V 01/16/2022 12:50 INDICATION: Chest tightness and diaphoresis. PROCEDURE: 2 view chest COMPARISON: 11/27/2021 FINDINGS: The lungs are clear. The cardiomediastinal silhouette is within normal limits. There are no pleural effusions. There is no pneumothorax suspected. IMPRESSION: 1: NO ACUTE CARDIOPULMONARY DISEASE. Reviewed, dictated and finalized at location B. 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
--- NOTE | 2022-01-16 11:56 | ECG_ITS ---
Measurements Intervals [place] Rate: 65 P: 59 SD: 206 QRS: 64 QRSD: 120 T: 87 QT: 411 QTc: 430 Interpretive Statements SINUS RHYTHM BORDERLINE AV CONDUCTION DELAY INTRAVENTRICULAR CONDUCTION DELAY BORDERLINE R WAVE PROGRESSION, ANTERIOR LEADS BORDERLINE T WAVE ABNORMALITY- HIGH LATERAL LEADS BASELINE WANDER- II, III BORDERLINE ECG COMPARED TO ECG 11/26/2021 17:14:56 NO SIGNIFICANT CHANGES Electronically Signed On 01-16-2022 14:18:40 FOURDRINIER OPERATOR by Neeraj Beltran D.O.
--- NOTE | 2022-01-16 11:58 | ED.CHESTPAIN ---
HPI - Chest Pain General Chief Complaint: Chest Pain Stated Complaint: tightness in chest Time Seen by Provider: 01/16/22 11:56 History of Present Illness HPI narrative: Pt presents with some mild tightness in his chest since 0800 this morning while driving. Pt has a recent history of CHF and has life vest in place. Pt says he has EF of 18% but they have not figured out why. 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 Pt denies weight gain or swelling or SOB. Pt denies fever or cough. Related Data Home Medications Medication Instructions Recorded Confirmed lipase 16,800-protease 1 - 2 cap PO TIDWMEAL 11/28/21 01/16/22 56,800-amylase 98,400 unit capsule, delayed rel (Pancreaze) empagliflozin 10 mg tablet 10 mg PO DAILY 11/29/21 01/16/22 (Jardiance) carvedilol 3.125 mg tablet (Coreg) 6.25 mg PO Q12HR 01/16/22 01/16/22 Allergies Allergy/AdvReac Type Severity Reaction Status Date / Time No Known Allergies Allergy Verified 01/16/22 12:02 Review of Systems Review of Systems: All systems reviewed & are unremarkable except as noted in HPI and below Cardiovascular: Cardiovascular: Reports as per HPI and Reports chest pain Respiratory: Respiratory: Reports as per HPI PMFSH Past Medical History Medical History (Updated 01/16/22 @ 14:18 by Jhon Frey III, DO) COVID-19 (01/2020) DM2 (diabetes mellitus, type 2) Exocrine pancreatic insufficiency Heart failure with reduced ejection fraction Nonischemic cardiomyopathy Pancreatitis (~2019) Surgical History Surgical History History of vasectomy Family History Family History Sibling cardiomyopathy, Onset Age: 30 Father Diabetes mellitus Mother Bipolar disorder Heart disease Social History Social History Social History: The patient lives with his and he has 2 children. He occasionally has a drink of alcohol. He is a former smoker. 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 He denies any marijuana or illicit drugs. Code status: Full code Surrogate decision maker: Smoking packs per day: 1 Smoking cigarettes per day: 20.0 Years smoked: 20 Smoking pack-years: 20.00 Smoking status: Former smoker Tobacco type: cigarettes Alcohol intake: current Drinks per week: 9 Alcohol use details: The patient drinks up to 6 alcoholic beverages 2 to 3 times a week. Substance use: never Additional living arrangements comments: He lives at home with his and children. 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 Spiritual care concerns: No Exam Const: General: healthy appearing and no acute distress Nutritional Appearance: well nourished Orientation/consciousness: patient oriented x3 Limitations: no limitations Chest: Chest palpation & inspection: normal inspection of the chest Resp: Effort & Inspection: normal respiratory effort Auscultation: clear to auscultation bilaterally Cardio: Rate: regular rate Rhythm: regular rhythm GI: GI Palp: Yes Soft to palpation Auscultation: normal bowel sounds Skin: General skin exam: normal color Rashes: no rashes Wounds: no wounds Neuro: General: patient oriented x3, moves all extremities and no focal motor deficits Speech: normal speech Extrem: General: normal to inspection, no clubbing, cyanosis or edema and no pedal edema Psych: Mental Status: mental status grossly normal Affect: normal affect Attitude: cooperative Course Course Emergency Course: gave asa but pt no longer having chest tightness, discussed with percy Alvarenga, for Dr Lopez, said will accept as consult, discussed with hospitalist, Marcela Baum who accepts for Dr Hancock. Vital Signs Vital signs: Vital Signs Pulse Rate 67 01/16/22 11:50 Oxygen Delivery Room Air 01/16/22 11:50
[2022-01-16 12:13] LABS: Basophils Absolute Auto 0.06 K/mm3 (0.00-0.10); Basophils Percent Auto 0.8 % (0.0-1.0); Eosinophils Absolute Auto 0.18 K/mm3 (0.02-0.50); Eosinophils Percent Auto 2.4 % (1.0-6.0); Hematocrit 45.8 % (40.0-54.0); Hemoglobin 14.4 g/dL (14.0-18.0); Immature Granulocyte Absolute 0.01 K/mm3 (0.00-0.00); Immature Granulocyte Percent A 0.1 % (0.0-0.0); Lymphocytes Absolute Auto 2.38 K/mm3 (1.10-4.50); Lymphocytes Percent Auto 32.2 % (18.0-42.0); Mean Corpuscular HGB Conc 31.4 g/dL (32.0-36.0); Mean Corpuscular Hemoglobin 26.4 pg (27.0-31.0); Mean Corpuscular Volume 83.9 fL (78.0-102.0); Monocytes Absolute Auto 0.48 K/mm3 (0.10-0.90); Monocytes Percent Auto 6.5 % (2.0-11.0); Neutrophils Absolute Auto 4.3 K/mm3 (1.7-7.2); Platelet Count Result 213 K/mm3 (150-420); Red Blood Count 5.46 M/mm3 (4.70-6.10); Red Cell Distribution Width 14.8 % (11.6-14.4); White Blood Count 7.4 K/mm3 (4.8-10.8)
[2022-01-16 12:30] LABS: INR 1.1; Partial Thromboplastin Time 26.8 SEC (23.90-30.70); Prothrombin Time 11.6 Seconds (9.50-12.10)
[2022-01-16 12:37] LABS: Alanine Aminotransferase 42 U/L (16-63); Alkaline Phosphatase 71 U/L (46-116); Anion Gap 11 mmol/L (8-16); Aspartate Amino Transferase 25 U/L (15-37); Bilirubin,Total 0.4 mg/dL (0.00-1.00); Blood Urea Nitrogen 16 mg/dL (7-18); Calcium 8.6 mg/dL (8.5-10.1); Carbon Dioxide 23 mmol/L (21-32); Chloride 106 mmol/L (98-108); Estimated Glomerular Filt Rate > 60; Glucose 131 mg/dL (70-99); NT Pro B Type Natriuretic Pept 676 pg/mL (0-125); Osmolality Calculated 293 mOsm/kg (285-295); Potassium 3.7 mmol/L (3.5-5.1); Sodium 140 mmol/L (136-145); Total Protein 7.7 g/dL (6.4-8.2)
[2022-01-16 12:38] LABS: Troponin I 86.2 ng/L (0.00-60.4)
--- NOTE | 2022-01-16 13:06 | PC.NURSE ---
PT RETURNS FROM XRAY AT THIS TIME, AWAITING RESULTS. PT REPORTS HE IS FEELING BETTER AT THIS TIME. AT BEDSIDE. PT INITIAL TROP WAS ELEVATED, ERP IS AWARE, AWAITING REDRAW. VSS PER MONITOR. WILL CONTINUE TO MONITOR.
--- NOTE | 2022-01-16 13:34 | PC.NURSE ---
PT IS SITTING UP TEXTING ON PHONE. AT BEDSIDE. NAD NOTED. PT DENIES ANY NEEDS OR COMPLAINTS. CALL PLACED TO DR RAVI AT THIS TIME. AWAITING TO SPEAK WIT DR RAVI. WILL CONTINUE TO MONITOR.
[2022-01-16] MEDS: ASPIRIN 81 MG CHEWABLE TABLET 324 MG PO (13:44)
--- NOTE | 2022-01-16 14:38 | PC.NURSE ---
PT AND AWARE OF PLAN OF CARE, PT IS LYING ON STRETCHER IN EXAM ROOM WATCHING TV AT THIS TIME. NAD NOTED. PT DENIES ANY NEEDS OR COMPLAINTS. CARDIAC REHAB NOTIFIED PT WILL NOT BE ATTENDING SESSION TOMORROW REQUESTED BY PT. PT IS AWAITING ROOM ASSIGNMENT AT [facility] FOR TRANSFER. WILL CONTINUE TO MONITOR.
[2022-01-16 14:47] LABS: SARS-CoV-2 Ag Negative (Negative)
--- NOTE | 2022-01-16 15:30 | PC.NURSE ---
PT UP TO BEDSIDE TO USE URINAL, 500ML OUTPUT. WATER PROVIDED. 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 WILL CONTINUE TO MONITOR.
[2022-01-16 15:55] LABS: Troponin I 87.7 ng/L (0.00-60.4)
--- NOTE | 2022-01-16 18:37 | PC.NURSE ---
1700 NO CHANGE IN PT STATUS. HAS RETURNED WITH BELONGINGS AND SOMETHING FOR THE PT TO EAT. PT CONTINUES TO AWAIT ROOM ASSIGNMENT AT [facility]. WILL CONTINUE TO MONITOR. NAD NOTED.
--- NOTE | 2022-01-16 18:38 | PC.NURSE ---
NO CHANGE IN PT STATUS, NAD NOTED. AT BEDSIDE. PT CONTINUES TO AWAIT ROOM ASSIGNMENT. WILL CONTINUE TO MONITOR.
== END 2022-01-16 20:40 | disposition short-term general hospital (02) ==
PROVIDERS: Emergency Provider Emergency Medicine; PCP Family Medicine
DX: R07.9 Chest pain, unspecified (principal); R79.9 Abnormal finding of blood chemistry, unspecified; Z20.822 Contact with and (suspected) exposure to COVID-19; E11.9 Type 2 diabetes mellitus without complications; Z87.891 Personal history of nicotine dependence
CPT/HCPCS: 36415; 71046; 80053; 83880; 84484; 85025; 85610; 85730; 87426; 93005; 99285; A9270; C9803

== ENCOUNTER 2022-01-16 21:11 | Observation (INO) | payer OTHER, SELFPAY ==
[2022-01-16 21:10] VITALS: BP 114/72; PULSE 78; RESP 20; TEMP 36.6; O2SAT 99
[2022-01-16 21:15] VITALS: BMI 31.9
--- NOTE | 2022-01-16 21:19 | ADMGEN ---
This patient, Anoop Francis, was admitted to IMU Room 210-01. Patient/family oriented to hospital policies and general routines including ID bracelet, bed and alarms, visiting hours, pain management, procedures, bathroom and other care routines, personal items, smoking policy, room service/diet, and visiting hours. Information on how to activate the Rapid Response Team has been discussed. Patient/Family are encouraged to report perceived risks to care and to ask questions if they do not understand what they are told or what they should do.
[2022-01-16 22:00] VITALS: PULSE 78
--- NOTE | 2022-01-16 22:33 | PM.IMHP ---
H&P: HPI History of Present Illness Date/Time: 01/16/22 22:33 Chief Complaint: Chest pressure Narrative: 46-year-old male with past medical history of type 2 diabetes mellitus, exocrine pancreatic insufficiency and recent diagnosis of nonischemic cardiomyopathy with EF of 15% who presented to the ER at [facility] due to chest pressure. Patient began having symptoms of his heart failure in early October. He was hospitalized here November 24 and diagnosed with new cardiomyopathy. He was discharged home in returned the same day due to episode of syncope and had a cardiac catheterization which pulled out myocardial ischemia. He was discharged on a LifeVest. The patient was referred to the Advanced Heart failure management team at [facility]. He he went there this past week at which time he cardiac MRI which verified a EF of 18%. The patient has been compliant with his Coreg Entresto and Lasix. He is still having occasional episodes of lightheadedness with standing. However otherwise he actually feels better compared to prior hospitalizations. He is not having any dyspnea on exertion. 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 He reports that today he was driving when he had a sensation of chest tightness. He also felt a little bit lightheaded. He said that the sensation was different than his prior episodes of benign positional vertigo. He describes the sensation as if he needed to belch. He reports he has been having multiple episodes of this on and off ever since Saturday. He denies any associated cough or congestion. He has not had any significant lower extremity swelling, orthopnea. He has not been feeling any palpitations. He reports that his LifeVest has alarmed twice once while he was shaking a can of spray paint. The other time was when he was asleep but will confirm asleep and he was asymptomatic. In the ER at [facility] the patient was noted to have a couple of sodas of nonsustained V-tach in his sounds like he may have had episode of nonsustained V-tach in route to our facility as well. However we do not have strips to confirm this. He reports that his blood pressures been in the 90s to low 100 systolic which is his goal range. He has not had any further alcohol consumption since his cardiomyopathy diagnosis. His confirms that the patient never drinks more than 6 beers twice a week. At [facility] the patient did have mildly elevated troponin on their scale with initial value of 86.2 in repeat of 87.7. However when patient arrived at our facility the patient's troponin was less than 0.012 which has been his baseline historically. His BNP at the outside facility was 676 which is down from prior values. did inform me that the patient is close friend of cancer just a week prior to the patient's onset of heart failure symptoms. She reports that the patient has been extremely upset about this. She feels that a portion of the patient's current symptoms are due to his anxiety and grieving for his friend. Patient himself does admit that he feels that his symptoms the last couple of days could have been some degree of anxiety. Review of Systems Review of Systems: 12 systems were reviewed with pertinent positives and negatives per HPI. Except as documented in the HPI, all other systems were reviewed and are negative. [facility] Past Medical History Medical History COVID-19 (01/2020) DM2 (diabetes mellitus, type 2) Ruled out with hemoglobin A1c of 5.7% October 2021. Patient is on Jardiance due to his cardiomyopathy. Exocrine pancreatic insufficiency Heart failure with reduced ejection fraction (10/2021) Nonischemic cardiomyopathy (10/2021) Pancreatitis (~2019) Surgical History Surgical History (Updated 01/17/22 @ 04:46 by Risa Gregory DO) History of cardiac catheterization (11/28/21) History of v
[2022-01-16 23:06] VITALS: BP 98/56; PULSE 77; RESP 20; TEMP 36.2; O2SAT 100
[2022-01-16 23:20] VITALS: O2SAT 99
[2022-01-16 23:46] LABS: Troponin I < 0.012 ng/mL (0.000-0.034)
[2022-01-17] VITALS (7 sets, daily range): BP systolic 101–113; BP diastolic 62–70; PULSE 60–90; RESP 16–20; TEMP 36.2–36.4; O2SAT 99–100
[2022-01-17 05:32] LABS: Troponin I < 0.012 ng/mL (0.000-0.034)
[2022-01-17] MEDS: carvediloL 3.125 MG TABLET 6.25 MG PO (08:11)
[2022-01-17] MEDS: EMPAGLIFLOZIN 10 MG TABLET PO (08:12)
[2022-01-17] MEDS: SACUBITRIL/VALSARTAN 24-26 MG TABLET 1 TAB PO (08:12)
[2022-01-17] MEDS: SPIRONOLACTONE 25 MG TABLET PO (08:12)
[2022-01-17] MEDS: ENOXAPARIN 40 MG/0.4 ML SYRINGE SUB-Q (08:15)
[2022-01-17 10:43] LABS: Sodium 134 mmol/L (137-145)
[2022-01-17 10:48] LABS: Anion Gap 7 mmol/L (8-16); Blood Urea Nitrogen 15 mg/dL (9-20); Carbon Dioxide 19 mmol/L (22-30); Chloride 108 mmol/L (98-107); Estimated CRCL calculation 128 ml/min; Estimated Glomerular Filt Rate > 60; Glucose 84 mg/dL (65-110)
--- NOTE | 2022-01-17 10:57 | PM.CNCAR ---
Assessment and Plan Assessment and plan (1) Elevated troponin: Code(s): R77.8 - Other specified abnormalities of plasma proteins Status: Acute (2) Chest tightness: Code(s): R07.89 - Other chest pain Status: Acute (3) Nonischemic cardiomyopathy: Onset Date: 10/2021 Code(s): I42.8 - Other cardiomyopathies Status: Acute (4) Heart failure with reduced ejection fraction: Onset Date: 10/2021 Code(s): I50.20 - Unspecified systolic (congestive) heart failure Status: Acute Plan Chest pain is not ACS. Telemetry without any significant arrhythmias. Possibly GI - will start daily Protonix. Continue with his home GDMT regimen of Coreg, Entresto, Jardiance, Aldactone. Patient can be discharged home from a cardiac standpoint. He will follow up with me in clinic. Please discharge patient with a prescription for the protonix. History of Present Illness History of Present Illness Consult date/time: 01/17/22 10:57 Requesting physician: Odilon De La Fuente MD Consult reason: chest pain Reason For Visit: Chest pain, nonischemic cardiomyopathy Narrative: We are being consulted for chest pain. Patient is a 46-year-old male with a history of nonischemic dilated cardiomyopathy who sees me in clinic. He had a recent cardiac cath on 11/28 which showed non-obstructive coronaries. His recent cardiac MRI shows LVEF 18%. He is still wearing his LifeVest and denies any shocks. Patient reports that he had an episode of mild chest pain yesterday while driving. Went to [facility] for evaluation, where he was found with a mildly elevated troponin. EKG without ischemic changes. Sent to [place] for further evaluation. Troponins here are negative. Patient reports his chest pain resolved while in the [place] ER and is chest pain free this morning. Patient states that he pain felt like a belching type of pain, but did not occur after eating or anything. Review of Systems Review of Systems: 12-point ROS obtained. Negative, unless stated in HPI. [facility] Past Medical History Medical History COVID-19 (01/2020) DM2 (diabetes mellitus, type 2) Ruled out with hemoglobin A1c of 5.7% October 2021. Patient is on Jardiance due to his cardiomyopathy. Exocrine pancreatic insufficiency Heart failure with reduced ejection fraction (10/2021) Nonischemic cardiomyopathy (10/2021) Pancreatitis (~2019) Surgical History Surgical History History of cardiac catheterization (11/28/21) History of vasectomy Family History Family History Sibling cardiomyopathy, Onset Age: 30 Father Diabetes mellitus Mother Bipolar disorder Heart disease Heart failure Social History Social History Social History: The patient lives with his and he has 2 children. Up until his cardiomyopathy diagnosis patient was drinking 6 beers 2-3 times a week. He is a former smoker. 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 He denies any marijuana or illicit drugs. Code status: Full code Surrogate decision maker: Smoking packs per day: 1 Smoking cigarettes per day: 20.0 Years smoked: 20 Smoking pack-years: 20.00 Smoking status: Former smoker Tobacco type: cigarettes Smoking end date: 07/25/15 Alcohol intake: former Drinks per week: 9 Alcohol use details: The patient drinks up to 6 alcoholic beverages 2 to 3 times a week. Substance use: never Lack of Transportation: YES Lack of Food: Never True Current Housing: I Have Housing Concerned About Future Housing: No Difficulty Paying Gas/Electric Bills: No Difficulty Paying for Meds: No Currently Unemployed: No Education: High School Diploma/GED Difficulty w/ Childcare or Family Care: No Addit
[2022-01-17] MEDS: PANTOPRAZOLE 40 MG TABLET PO (11:13)
--- NOTE | 2022-01-17 14:14 | PM.DS ---
DS: Admitting Diagnosis Discharge Date 01/17/2022 Admitting Diagnosis Chest pain DS: Summary Hospital Course Hospital Course: Patient is a 46-year-old male with a history of nonischemic dilated cardiomyopathy who presented to ER with complaints of chest pain. He had a recent cardiac cath on 11/28 which showed non-obstructive coronaries. His recent cardiac MRI shows LVEF 18%. He is still wearing his LifeVest and denies any shocks. He went to [facility] for evaluation, where he was found with a mildly elevated troponin. EKG without ischemic changes. Sent to [place] for further evaluation. Troponins here are negative. Patient reports his chest pain resolved. Per Cardiology his pain is not ACS. Appears to be gastric in nature. Patient will be discharged home on oral PPI per Cardiology recommendations. Otherwise he is on his goal-directed medical therapy. Time Spent with Patient Time attestation: Total time spent providing and/or coordinating discharge services: Exam Const: General: comfortable and no acute distress HENMT: Mouth: Yes moist mucous membranes Eyes: General: appearance normal, both eyes and all related structures Neck: Neck: supple Resp: Effort & Inspection: normal respiratory effort Auscultation: clear to auscultation bilaterally Cardio: Rate: regular rate Rhythm: regular rhythm Heart sounds: no murmurs Other: No JVD GI: GI Palp: Yes Soft to palpation and No Tenderness to palpation present (GI) Auscultation: normal bowel sounds Skin: General skin exam: normal color Neuro: Speech: normal speech Motor exam (neuro): 5/5 motor strength present throughout Extrem: General: normal to inspection Psych: Mental Status: mental status grossly normal Affect: normal affect DS: Data Data Completed and Pending Labs on day of discharge: Labs from last 24 hours 01/17/22 01/17/22 01/16/22 04:41 04:38 23:12 Sodium 134 L Potassium 4.0 Chloride 108 H Carbon Dioxide 19 L Anion Gap 7 L BUN 15 Creatinine 0.80 Estim Creat Clear Calc 128 Estimated GFR > 60 Glucose 84 Calcium 9.0 Troponin I < 0.012 < 0.012 Discharge Plan Discharge Consulting providers: Katie Lopez Discharging Clinician: Odilon De La Fuente Anticipated Discharge Date/Time: 01/17/22 11:53 Patient Disposition: Home, Self-Care Activity: may shower Diet: heart healthy Patient Instructions: Antibiotic Form, Pantoprazole (By mouth), Heart Failure (DC) Stand Alone Forms: General Discharge Information Follow-up/Referrals: Katie Lopez MD [Physician] - Harry Solorzano MD [Primary Care Provider] - Discharge Medications: New pantoprazole 40 mg Tablet,Delayed Release (Dr/Ec) 40 mg PO QAM 30 Days Qty: 30 0RF Continued carvedilol [Coreg] 3.125 mg tablet 6.25 mg PO Q12HR Entresto 24-26 mg Tablet 1 tablet PO Q12HR 30 Days Qty: 60 0RF spironolactone [Aldactone] 25 mg tablet 25 mg PO DAILY 30 Days Qty: 30 0RF Pancreaze 16,800-56,800- 98,400 unit capsule,delayed release(DR/EC) 1 - 2 cap PO TIDWMEAL Label Comments: Patient takes only when eating a high fat meal Rx Instructions: 1 dose per snack & 2 dose per meal Jardiance 10 mg Tablet 10 mg PO DAILY furosemide [Lasix] 40 mg tablet 40 mg PO DAILY PRN (Reason: Weight Gain (3-5lbs/day)) Label Comments: Patient states he takes this medication as needed Date of admission: 01/16/22 21:11 Primary Care Provider: Harry Solorzano Admitting Provider: Imer Hancock Attending physician on admission: Odilon De La Fuente Condition: Stable
== END 2022-01-17 14:39 | disposition home or self-care (01) ==
PROVIDERS: Internal Medicine; Admitting Provider Internal Medicine; PCP Family Medicine; Visit Provider Hospitalist
DX: R07.89 Other chest pain (principal); E11.9 Type 2 diabetes mellitus without complications; K86.81 Exocrine pancreatic insufficiency; I42.8 Other cardiomyopathies; F10.90 Alcohol use, unspecified, uncomplicated; Z86.16 Personal history of COVID-19; I11.0 Hypertensive heart disease with heart failure; I50.20 Unspecified systolic (congestive) heart failure; K85.90 Acute pancreatitis without necrosis or infection, unspecified; R77.0 Abnormality of albumin; Z79.899 Other long term (current) drug therapy; Z87.891 Personal history of nicotine dependence; Z83.3 Family history of diabetes mellitus; Z82.49 Family history of ischemic heart disease and other diseases of the circulatory system
CPT/HCPCS: 36415; 80048; 84484; 94762; 96372; A9270; G0378; G0379; J1650

== ENCOUNTER 2022-03-21 08:00 | Outpatient (RCR) | payer OTHER, SELFPAY | END 2022-03-26 12:45 | disposition home or self-care (01) | PROVIDERS: PCP Family Medicine; Visit Provider Internal Medicine | DX: I50.9 Heart failure, unspecified (principal) | CPT/HCPCS: 93798 ==

== ENCOUNTER 2024-05-06 10:09 | Emergency (ER) | payer OTHER, SELFPAY ==
--- NOTE | ~2024-05-06 | XR_ITS ---
EXAMINATION: XR hand LT min 3V DATE: 05/06/2024 11:02 INDICATION: Left hand foreign body. TECHNIQUE: 4 views of left hand were obtained. COMPARISON: None. FINDINGS: Alignment is normal. No fracture. There is mild osteoarthritis of first carpometacarpal becky nt, first metacarpophalangeal joint, and first interphalangeal joint. There is a 5.7 cm linear radiop aque foreign body overlying the palmar soft tissues of the second and third digits. IMPRESSION: 1. Foreign body in the hand. Reviewed, dictated and finalized at location B.
[2024-05-06 10:09] VITALS: BP 102/60; PULSE 62; RESP 18; TEMP 36.7
[2024-05-06 10:15] VITALS: BP 102/69; O2SAT 96
--- NOTE | 2024-05-06 10:37 | ED_ITS ---
HPI - Skin/Abscess/Foreign Bdy General Chief complaint: Skin/Abscess/Foreign Body Stated complaint: NAIL IN HAND Time Seen by Provider: 05/06/24 10:36 Source: patient Mode of arrival: ambulatory Limitations: no limitations History of Present Illness HPI narrative: 48-year-old male with a history of cardiomyopathy status post ICD presents to the ED after he shot a nail through his left hand 2nd / 3rd finger just prior to coming to the ED. no other injuries noted. Not up-to-date on tetanus. complaint: foreign body Onset (ago): hour(s) ( 1 hour ago) Tetanus up to date: no Location: RUE ( left hand 2/3 fingers) Severity: moderate Quality: aching Pain Consistency: constant Exacerbating factors: none Associated symptoms: denies other symptoms Treatments prior to arrival: none Related Data Home Medications ?Medication ?Instructions ?Recorded ?Confirmed ?Last Taken ?Type lipase 16,800-protease 1 - 2 cap PO TIDWMEAL 11/28/21 01/16/22 Unknown History 56,800-amylase 98,400 unit capsule, delayed rel (Pancreaze) empagliflozin 10 mg tablet 10 mg PO DAILY 11/29/21 01/16/22 01/16/22 09:00 History (Jardiance) carvedilol 3.125 mg tablet (Coreg) 6.25 mg PO Q12HR 01/16/22 01/16/22 01/16/22 20:00 History furosemide 40 mg tablet (Lasix) 40 mg PO DAILY PRN Weight Gain 01/16/22 01/16/22 Unknown History (3-5lbs/day) Allergies Allergy/AdvReac Type Severity Reaction Status Date / Time No Known Allergies Allergy Verified 05/06/24 10:31 Review of Systems Review of Systems: All systems reviewed & are unremarkable except as noted in HPI and below PMFSH Past Medical History Medical History Nonischemic cardiomyopathy (10/2021) DM2 (diabetes mellitus, type 2) Ruled out with hemoglobin A1c of 5.7% October 2021. Patient is on Jardiance due to his cardiomyopathy. Heart failure with reduced ejection fraction (10/2021) Exocrine pancreatic insufficiency COVID-19 (01/2020) Pancreatitis (~2019) Surgical History Surgical History History of cardiac catheterization (11/28/21) History of vasectomy Family History Family History Sibling cardiomyopathy, Onset Age: 30 Father Diabetes mellitus Mother Bipolar disorder Heart disease Heart failure Social History Social History Social History: The patient lives with his and he has 2 children. Up until his cardiomyopathy diagnosis patient was drinking 6 beers 2-3 times a week. He is a former smoker. 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 He denies any marijuana or illicit drugs. Code status: Full code Surrogate decision maker: Smoking packs per day: 1 Smoking cigarettes per day: 20.0 Years smoked: 20 Smoking pack-years: 20.00 Smoking status: Former smoker Tobacco type: cigarettes Smoking end date: 07/25/15 Alcohol intake: former Drinks per week: 9 Alcohol use details: The patient drinks up to 6 alcoholic beverages 2 to 3 times a week. Substance use: never Lack of Transportation: YES Lack of Food: Never True Current Housing: I Have Housing Concerned About Future Housing: No Difficulty Paying Gas/Electric Bills: No Difficulty Paying for Meds: No Currently Unemployed: No Education: High School Diploma/GED Difficulty w/ Childcare or Family Care: No Additional living arrangements comments: He lives at home with his and children. 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 Spiritual care concerns: No Exam Narrative: vitals are stable Const: General: no acute distress Nutritional Appearance: well nourished Orientation/consciousness: patient oriented x3 Limitations: no limitations HENMT: Head: normal to inspection Ears: external ears normal Face/Nose/Sinus: Normal external nose present Face and sinus: normal facial exam Mouth: Yes Normal oral and palatal mucosa present Throat: posterior oropharynx normal Eyes: Conjunctivae: conjunctivae normal Pupils: Equal, round and reactive pupils present EOM: EOMs intact bilaterally Direct Ophthalmoscopy: no photophobia Neck: Neck: normal visual inspection and no lymphadenopathy Chest: Chest palpation & inspection: normal inspection of the chest Resp: Effort & Inspection: normal respiratory effort Auscultation: clear to auscultation bilaterally Cardio: Rate: regular rate Rhythm: regular rhythm GI: Auscultation: normal bowel sounds Other: no tenderness/rigidity / rebound. : General: Yes no CVA tenderness Back/Spine/Pelvis: Back: no CVA tenderness Skin: General skin exam: normal color Rashes: no rashes Wounds: no wounds Neuro: General: patient oriented x3, moves all extremities, no meningeal signs, no focal motor deficits and CN's II-XI intact bilaterally Cranial nerves: Yes Nystagmus not present Speech: normal speech Extrem: General: normal to inspection ( L. hand nail passing through the soft tissues of the palmar aspect 2/3 fi) Psych: Mental Status: mental status grossly normal Course Course Emergency Course: Foreign body through the 2/3 finger palmar aspect the left hand Vital Signs Vital signs: Vital Signs Temperature 36.7 C 05/06/24 10:09 Pulse Rate 62 05/06/24 10:09 Respiratory Rate 18 05/06/24 10:09 Blood Pressure 102/60 05/06/24 10:09 Oxygen Delivery Room Air 05/06/24 10:09 Temperature 36.7 C 05/06/24 10:09 Pulse Rate 62 05/06/24 10:09 Respiratory Rate 18 05/06/24 10:09 Blood Pressure 102/60 05/06/24 10:09 Oxygen Delivery Room Air 05/06/24 10:09 Procedures Foreign Body Removal Foreign Body #1: Foreign Body Removal Date: 05/06/24 Foreign Body Removal Time: 11:30 Site: left and other ( and) Description of foreign body: other ( nail) Sedation/Analgesia: none and other ( 5 mL of 1% lidocaine injected on the palmar aspect of the proximal phalanx of the 2/3 finger.) Technique: manual removal Confirmed by:: radiograph Complications: none Post-procedure exam: awake, alert Neurovascular: normal distal pulse and normal capillary fill MDM - Skin/Abscess/Foreign Bdy MDM Narrative Medical decision making narrative: Foreign body through 2/3 finger Differential Diagnosis Differential diagnosis: Likely allergic reaction to drug and cellulitis Discharge Plan Discharge Clinical Impression: Foreign body finger Patient Disposition: Home, Self-Care Condition: Stable Instructions: Antibiotic Form, Puncture Wound (ED) Patient Language: Greenlandic Prescriptions: New amoxicillin-pot clavulanate 875-125 mg tablet 1 tablet PO Q12H Qty: 14 0RF No Action carvedilol [Coreg] 3.125 mg tablet 6.25 mg PO Q12HR Entresto 24-26 mg Tablet 1 tablet PO Q12HR 30 Days Qty: 60 0RF spironolactone [Aldactone] 25 mg tablet 25 mg PO DAILY 30 Days Qty: 30 0RF Pancreaze 16,800-56,800- 98,400 unit capsule,delayed release(DR/EC) 1 - 2 cap PO TIDWMEAL Patient Comments: Patient takes only when eating a high fat meal Rx Instructions: 1 dose per snack & 2 dose per meal Jardiance 10 mg Tablet 10 mg PO DAILY furosemide [Lasix] 40 mg tablet 40 mg PO DAILY PRN (Reason: Weight Gain (3-5lbs/day)) Patient Comments: Patient states he takes this medication as needed pantoprazole 40 mg Tablet,Delayed Release (Dr/Ec) 40 mg PO QAM 30 Days Qty: 30 0RF Follow-up/Referrals: UNKNOWN,DOCTOR [Non-Staff] - Time of Disposition: 11:32
[2024-05-06] MEDS: TETANUS,DIPHTHERIA,AC PERTUSSIS ADULT 0.5 ML (ADACEL) IM (11:10)
[2024-05-06] MEDS: LIDOCAINE 1% LOCAL INJ 10 ML VIAL 5 ML INFILTRATE (11:10)
[2024-05-06 11:15] VITALS: BP 108/70; PULSE 72; RESP 18; O2SAT 98
--- OUTSIDE RECORDS SUMMARY | 2024-05-06 11:16 | XMS_ITS | Clinical Summary ---
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 Gender Identity Not on file Sexual Orientation Not on file Plan of Treatment Health Maintenance Due Date Last Done Comments Colorectal Cancer Screening Colonoscopy (10 Years) 1976 Annual Physical 11/10/1979 Hepatitis C 1994 DTaP, Tdap and Td Vaccines ( 1 - Tdap) 11/10/1995 Hepatitis B Vaccines (1 of 3 - 19+ 3-dose series) 11/10/1995 COVID-19 Vaccine (2023-2 5 season) 2023 Influenza Adult (#1) 2023 Meningococcal B Vaccine Aged Out No l onger eligible based on patient's age to complete this topic Meningococcal Vaccine Aged Out No morris haritha eligible based on patient's age to complete this topic Pneumococcal Vaccine: Pediat rics (0 to 5 Years) and At-Risk Patients (6 to 64 Years) Aged Out No longer eligible b ased on patient's age to complete this topic RSV Immunizations Under 20 Months Aged Out No longer eligible based on patient's age to complete this topic
--- NOTE | 2024-05-06 11:35 | PC.NURSE ---
PT SKIN W-D-P PRIOR TO DC, STATES HE IS FEELING BETTER AND LESS ANXIOUS AT THIS TIME. PT TOLERATED PROCEDURE WELL. WOUND CLEANED AND DRESSED. PT TO BE DC HOME.
--- OUTSIDE RECORDS SUMMARY | 2024-05-06 12:12 | XMS_ITS | Clinical Summary ---
Author Organization [facility] [address] Address [address] [place] [address] Care Team Providers Care Parts Counter Salesperson Name Role Phone Harry Solorzano MD Primary Care Provide r Natalio Wolfe MD Unavailable [phone] Abigail Flores RN Unavailable Unavailable Monica Horton RN Unavailable Unavailab le Allergies No known active allergies Medications furosemide (LASIX) 20 mg tablet Take 1 tablet (20 mg total) by mouth daily (1 tablet = 20 mg) 90 tablet 3 3 Active Taclonex external suspension 4 Active sacubitriL-vals parker (Entresto) 97-103 mg tablet Take 1 tablet by mouth 2 (two) times a day 180 tablet 3 4 Active Jardiance 10 mg tabletIndicatio ns:Cardiomyopat hy, unspecified type (HCC) TAKE 1 TABLET BY MOUTH DAILY 30 tablet 5 4 Active spironolactone (ALDACTONE) 25 mg tabletIndicatio ns:Cardiomyopat hy, unspecified type (HCC) TAKE 1 TABLET BY MOUTH EVERY MORNING 90 tablet 2 5 Active carvediloL (COREG) 12.5 mg tablet TAKE ONE TABLET BY MOUTH TWICE A DAY WITH MEALS 60 tablet 11 5 Active carvediloL (COREG) 12.5 mg tablet Take 1 tablet (12.5 mg total) by mouth 2 (two) times a day with meals 60 tablet 11 4 025 Discontinued Active Problems Problem Noted Date Diagnosed Date ICD (implantable cardioverter-defibrillator) in place 11/16/2022 NICM (nonischemic cardiomyopathy) 05/28/2022 Encounter for fitting or adj ustment of implantable cardioverter-defibrillator (ICD) 05/28/2022 Assessment & Plan (05/29/2022 10:41 AM CDT): S/p ICD placement by EP on 05/28/22 for nonischemic cardiomyopathy with reduced ejection fraction -Admit to the observation unit for post-procedural monitoring. -Interrogation and CXR with appropriate findings. -Discussed with EP. Cleared by EP for discharge -Keflex 500 mg BID x3 days -Discussed activity restrictions, care of incision, and reasons to call MD. Written instruction also provided. Nonischemic cardiomyopathy 12/08/2021 Heart failure with reduced ejection fraction Assessment & Plan (05/28/2022 3:09 PM CDT): TTE on 03/02/22 with severe LV enlargement, LVEF 22% and grade 1 diastolic dysfunction. Attributed to nonischemic cardiomyopathy. Originally diagnosed with cardiomyopathy at [facility] in September 2021; cardiac catheterization at that time did not reveal obstructive coronary disease. Initially treated with GDMT without significant increase in his LVEF. Follows with [facility] (Dr. Lopez; Dr. Elder in EP). Home medications: empagliflozin, metoprolol XL, Entresto, spironolactone, PRN Lasix. The patient appears euvolemic on exam --S/p ICD placement by EP on 05/28/22 (see above) --Continue home medications: Metoprolol XL 50 mg q day, empagliflozin 10 mg q hs, Entresto 49-51 mg BID, spironolactone 25 mg q day Encounters Date Type Department Care Team Description 03/02/2024 Telephone [facility] Transplant Heart [address] [place] [address] [id number] [place] [address] Jhoana Chu 03/02/2024 Telephone [facility] Transplant Heart [address] [facility] [address] [id number] [place] [address] Abigail Flores RN from Last 3 Months Immunizations Immunization Administration Dates Next Due DTP 06/30/1981,05/24/1978,04/24/1977 ,02/23/1977,1976 MMR 02/23/1978 Measles 10/27/1981 OPV 06/30/1981,05/24/1978,04/24/1977 ,02/23/1977,1976 Tdap 12/03/2016 Surgical History Surgery Date Site/Laterality Comments CARDIAC CATHETERIZATION 11/25/2021 - 12/25/2021 VASECTOMY 02/25/1999 - 02/25/2000 Medical History Medical History Date Comments CHF (congestive heart failure) ([facility]) Heart disease 11/24/22 Family History Medical History Relation Name Comments Diabetes Father Ajay French Hypertension Father Ajay French Heart failure Mother Heart failure Sister Relation Name Status Comments Father Ajay French Mother Sister Social History Tobacco Use Types Packs/Day Years Used Date Smoking Tobacco: Former Cigarettes 0.3 20.5 1 03/28/1994 - 07/15/2015 Passive Smoke Exposure: Never Smokeless Tobacco: Never Tobacco Cessation:Counseling Given: Not Answered AUDIT-C Answer Date Recorded Q1: How often do you have a drink containing alcohol? Never 05/28/2022 Q2: How many drinks containi ng alcohol do you have on a typical day when you are drinking? Patient does not drink Q3: How often do you have si x or more drinks on one occasion? Never 05/28/2022 Personal Safety Answer Date Recorded Getting School Help Needed Not on file 06/07 Sex and Gender Information Value Date Recorded Sex Assigned at Not on file Legal Sex Male 11:18 AM CDT Gender Identity Not on file Sexual Orientation Not on file Obstetrics History Last Filed Vital Signs Vital Sign Reading Time Taken Comments Blood Pressure 108/62 12/18/2023 8:55 AM CDT Pulse 81 12/18/2023 8:55 AM CDT Temperature 36.8 C (98.2 F) 05/29/2022 9:19 AM CDT Respiratory Rate 16 05/29/2022 9:19 AM CDT Oxygen Saturation 97% 12/18/2023 8:55 AM CDT Inhaled Oxygen Concentration - - Weight 118.4 kg (261 lb) 12/18/2023 8:55 AM CDT Height 182.9 cm (6') 12/18/2023 8:55 AM CDT Body Mass Index 35.4 12/18/2023 8:55 AM CDT Plan of Treatment Health Maintenance Due Date Last Done Comments Colon Cancer Screening-Colonoscopy 1976 Depression Screening 1976 Hepatitis C Screening 1976 Hepatitis B Screening 1994 Regular Well Visit/Exam 18-64 1994 Covid-19 Vaccine (3 - 2023- season) 2023 04/21/2020, 03/31/2020 Influenza Vaccine (#1) 2023 DTaP/Tdap/Td Vaccine (7 - Td or Tdap) 12/03/2026 12/03/2016, 06/30/1981, 05/24/1978, Additional history exists Pneumococcal vaccine <65 Aged Out No longer eligible based on patient's age to complete this topic Medical Devices Implanted Type Area Health And Safety Inspector Device Identifier Shelf Expiration Date Model / Serial / Lot [place] [employer] Dynagen Enduralife Easyview Hf Perspectiv 5.37x7.68cm 2 Chamber D152 - [id number] - [id number] Implanted:Qty: 1 on 05/28/2022 by Guillermo Elder MD at [facility] ICD Left: Chest [employer] [place] [employer] 12/08/2023 D152 / [id number] / [place] [employer] [place] 4-Front 59cm Active Fixation Lead Icd 0672 - [id number] - [id number] Implanted:Qty: 1 on 05/28/2022 by Guillermo Elder MD at [facility] Lead Right: Ventricle [place] [employer] 04/25/2024 0672 / [id number] / [employer] [place] [employer] Lead 7841 Endocardial Pacing Mr Is-1 Bipolar Connection 7841 - [id number] - [id number] Implanted:Qty: 1 on 05/28/2022 by Guillermo Elder MD at [facility] Lead Right: [employer] [place] [employer] 04/05/2024 7841 / [id number] / Insurance CIGNA CIGNA CIGNA Advance Directives For more information, please contact: [phone] * Full Code (Latest Code Status on File) Date Activated Date Inactivated Comments 05/28/2022 3:07 PM 05/29/2022 3:04 PM * Full Code Date Activated Date Inactivated Comments 05/28/2022 11:20 AM 05/28/2022 3:07 PM Care Teams Parts Counter Salesperson Relationship Specialty Start Date End Date Harry Solorzano MD [address] [place] [address] PCP - General Family Medicine 11/29/21 Natalio Wolfe MD [address] [place] [address] Referring Physician Cardiology 01/09/22 Abigail Flores, liquid hydrogen plant operator Failure Coordinator Transplant 03/27/23 Monica Horton liquid hydrogen plant operator Failure Coordinator Cardiology 08/26/23
--- OUTSIDE RECORDS SUMMARY | 2024-05-06 12:12 | XMS_ITS | Clinical Summary ---
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
--- OUTSIDE RECORDS SUMMARY | 2024-05-06 12:12 | XMS_ITS | Referral Summary ---
Author Organization [facility] [address] Address [address] [place] [address] Care Team Providers Care Plasterer Spray Gun Name Role Phone Harry Solorzano MD Primary Care Provide r Natalio Wolfe MD Unavailable [phone] Abigail Flores RN Unavailable Unavailable Monica Horton RN Unavailable Unavailab le Encounters Date Type Department Care Team Description 03/02/2024 Telephone [facility] Transplant Heart [address] [facility] [id number] [place] [address] Jhoana Chu 03/02/2024 Telephone [facility] Transplant Heart [address] [facility] [id number] [place] [address] Abigail Flores RN from Last 3 Months Allergies No known active allergies Medications furosemide [...] nonischemic cardiomyopathy. Originally diagnosed with cardiomyopathy at [facility] in September 2021; cardiac catheterization at that time did not reveal obstructive coronary disease. Initially treated with GDMT without significant increase in his LVEF. Follows with [facility] (Dr. Lopez; Dr. Elder in EP). Home medications: empagliflozin, metoprolol XL, Entresto, spironolactone, PRN Lasix. The patient appears euvolemic on exam --S/p ICD placement by EP on 05/28/22 (see above) --Continue home medications: Metoprolol XL 50 mg q day, empagliflozin 10 mg q hs, Entresto 49-51 mg BID, spironolactone 25 mg q day Immunizations Immunization Administration Dates Next Due DTP 06/30/1981,05/24/1978,04/24/1977 ,02/23/1977,1976 MMR 02/23/1978 Measles 10/27/1981 OPV 06/30/1981,05/24/1978,04/24/1977 ,02/23/1977,1976 Tdap 12/03/2016 Social History Tobacco Use Types Packs/Day Years [...] on file Sexual Orientation Not on file Last Filed Vital Signs Vital Sign Reading [...] 12/18/2023 8:55 AM CDT Plan of Treatment Not on file Medical Devices Implanted Type Area Sampler Tester Device Identifier Shelf Expiration Date Model / Serial / Lot [employer] Dynagen Enduralife Easyview Hf Perspectiv 5.37x7.68cm 2 Chamber D152 - [id number] - [id number] Implanted:Qty: 1 on 05/28/2022 by Guillermo Elder MD at [facility] ICD Left: Chest [place] [employer] 12/08/2023 D152 / [id number] / [place] [employer] [place] 4-Front 59cm Active Fixation Lead Icd 0672 - [id number] - [id number] Implanted:Qty: 1 on 05/28/2022 by Guillermo Elder MD at [facility] Lead Right: Ventricle [place] [employer] 04/25/2024 0672 / [id number] / [place] [employer] Lead 7841 Endocardial Pacing Mr Is-1 Bipolar Connection 7841 - [id number] - [id number] Implanted:Qty: 1 on 05/28/2022 by Guillermo Elder MD at [facility] Lead Right: Atria [place] [employer] 04/05/2024 7841 / [id number] / Insurance CIGNA CIGNA CIGNA Advance Directives For more information, please contact: [phone] * Full Code (Latest Code Status on File) Date Activated Date Inactivated Comments 05/28/2022 3:07 PM 05/29/2022 3:04 PM * Full Code Date Activated Date Inactivated Comments 05/28/2022 11:20 AM 05/28/2022 3:07 PM Care Teams Plasterer Spray Gun Relationship Specialty Start Date End Date Harry Solorzano MD [address] [place] [address] PCP - General Family Medicine 11/29/21 Natalio Wolfe MD [address] [place] [address] Referring Physician Cardiology 01/09/22 Abigail Flores, recordist Failure Coordinator Transplant 03/27/23 Monica Horton RN Heart Failure Coordinator Cardiology 08/26/23
== END 2024-05-06 11:40 | disposition home or self-care (01) ==
PROVIDERS: Emergency Provider Internal Medicine Critical Care Medicine; PCP Family Medicine
DX: S61.241A Puncture wound with foreign body of left index finger without damage to nail, initial encounter (principal); S61.243A Puncture wound with foreign body of left middle finger without damage to nail, initial encounter; E11.9 Type 2 diabetes mellitus without complications; I50.9 Heart failure, unspecified; Z87.891 Personal history of nicotine dependence; Z23 Encounter for immunization; W29.4XXA Contact with nail gun, initial encounter
CPT/HCPCS: 73130; 90471; 90715; 99283; J2003